=== PATIENT | male | born 1965 | race Caucasian/White ===

== ENCOUNTER → 2016-09-04 | Outpatient (CLI) | payer MEDICARE, MEDICAID ==
[~2016-09-04] MED LIST: ALLP100T PO; ALLP300T PO; ALPR.25T PO; ALPR.5T PO; APIX5TAB PO; ASP81CT PO; CATHETER FLUSH 10 ML SYR IV PRN; DABI75CA3 PO; DIGO125T PO; DILT180C PO; METO-274 PO; OMG1KC PO; PRV20T PO; REGADENOSON 0.4 MG/5 ML SYR (LEXISCAN) IV ONE; VERA180T5 PO; WRF3T PO
--- OUTSIDE RECORDS SUMMARY | 2016-09-04 10:37 | XMS REPORT | Continuity of Care Document ---
Author Author [facility] Organization [facility] Address Unknown Phone Unavailable Care Team Providers Care Director Of Student Financial Aid Name Role Phone Chad Almodovar PCP [phone] Source Comments Some departments are not documenting in the electronic medical record. If you do not see the information that you expected, contact Release of Information in the Health Information Management department at [phone] for further assistance in locating additional records.[facility] Active Allergies and Adverse Reactions Allergen Noted Date Severity Reactions Comments Azithromycin 01/25/2014 UNKNOWN Diltiazem 11/24/2014 Medium HIVES Flagyl 01/25/2014 SEE COMMENTS Made skin burn Flecainide 05/31/2014 HIVES Indomethacin 01/25/2014 EDEMA Pradaxa 04/22/2013 SEE COMMENTS Nose bleeds Current Medications Prescription Sig. Disp. Refills Start End Date Status Date ALPRAZolam (XANAX) 0.5 mg Take 0.5 mg by mouth Active tablet three times daily as needed. allopurinol (ZYLOPRIM) Take 150 mg by mouth Active 300 mg tablet daily. digoxin (LANOXIN) 125 mcg Take 1 Tab by mouth 90 Tab 3 08/12/19 Active tablet daily. 15 enoxaparin (LOVENOX) 80 Inject 0.8 mL into 6 Syringe 1 01/06/20 Active mg syrg area(s) as directed twice 15 daily. Start Lovenox as instructed based on your INR, continue until INR>2.0. apixaban (ELIQUIS) 5 mg Take 5 mg by mouth twice Active tab tablet daily. metoprolol XL (TOPROL XL) Take 100 mg by mouth Active 100 mg tablet daily. 1 tablet AM and 1/2 tablet PM Active Problems Problem Noted Date Dental caries 11/24/2014 Overview: Extraction Planned. May hold warfarin for 5 days. Will need Lovenox bridge due to h/o TIA. Atrial fibrillation (HCC) 06/10/2014 Alcohol abuse 04/29/2013 Last Assessment & Plan: Has a addiction problem. May need help. We will refer to PCP. Tobacco abuse 04/29/2013 Last Assessment & Plan: Quit smoking 2 weeks ago after he had cold. HLD (hyperlipidemia) 04/22/2013 Last Assessment & Plan: Has not been tested lately. Refer to PCP. Chronic anticoagulation 04/22/2013 Overview: On warfarin Managed by Dr. Almodovar's office CVA (cerebral infarction) 04/22/2013 Overview: Reported CVA - no residual effects. Resolved Problems Problem Noted Date Resolved Date shelter (current) use of anticoagulants 05/17/2014 04/18/2015 AF (atrial fibrillation) ([facility]) 04/22/2013 04/18/2015 Overview: 12/06/2010 - ECHO: LVEF ~ 54%. Normal chamber dimensions of the heart. Normal LV systolic function. Mild MR and TR. ([facility]). 12/06/2010 - Cardiac CTA: Minimal identifiable calcifications, low probability of CAD. ([facility]). 05/2012 - D[facility] 11/08/2012 - 48 Hour Holter: Well controlled AF. (Dr. Early) 12/30/2012 - Cardiac Catheterization: Angiographically mild coronary artery disease. Normal LV systolic function and EF=60%. Normal LVEDP. No significant MR. ([facility]). 04/08/2013- 48 Hour Holter: Episodes of AF with RVR. Some episodes of bradycardia were noted while sleeping. (Dr. Early). 06/10/2014 - LAAA: RFA PV isolation for Persistent Atrial fibrillation. The left atrium was mildly enlarged. The PV anatomy was remarkable for an accessory pulm vein below the RSPV. Normal AV node function, no evidence of accessory pathway. CTI ablation with bi-directional isthmus block L ast Assessment & Plan: Still in persistent AFib. Still has alcohol addiction issues. I wont recommend cardioversion until his alcohol issues are resolved. Stop Propafenone. Start diltiazem 120 mg daily. Sleep study was negative. Social History Tobacco Use Types Packs/Day Years Used Date Light Tobacco Smoker Cigars 0.25 Smokeless Tobacco: Chew Current User Alcohol Use Drinks/Week oz/Week Comments Yes 60 Cans of 36.0 beer Last Filed Vital Signs Vital Sign Reading Time Taken Blood Pressure 128/72 11/24/2014 9:54 AM CDT Pulse 90 11/24/2014 9:54 AM CDT Temperature 36.8 C (98.2 F) 06/11/2014 9:45 AM FLAT EXAMINER Respiratory Rate - - Height 1.778 m (5' 10") 11/24/2014 9:54 AM CDT Weight 88.542 kg (195 lb 3.2 oz) 11/24/2014 9:54 AM CDT Body Mass Index 28.01 11/24/2014 9:54 AM CDT Oxygen Saturation 99% 06/11/2014 9:45 AM FLAT EXAMINER Plan of Care Health Maintenance Due Date Last Done Comments Hepatitis C Screening 1965 Physical (Comprehensive) 1971 Exam Pertussis Vaccine 1975 Tetanus Vaccine 1981 Colorectal Cancer 2014 Screening Influenza Vaccine 03/29/2016 Results from Last 3 Months Not on file
[2016-09-04] MEDS: CATHETER FLUSH 10 ML SYR IV PRN ×2 (11:59→13:13)
[2016-09-04 13:12] VITALS: BP 142/101
--- NOTE | 2016-09-06 08:40 | STRESS TEST ---
PROCEDURE PHYSICIAN: JOHN EARLY DATE OF PROCEDURE: 09/04/2016 RESTING AND POST REGADENOSON TECHNETIUM 99M TETROFOSMIN SPECT CT IMAGING: ORDERING PHYSICIAN: Gilda Barraza APRN. PRIMARY PHYSICIAN: Dr. Almodovar. OTHER PHYSICIAN: Dr. Early CLINICAL DIAGNOSIS: 1. Shortness of breath. 2. Atrial fibrillation. 3. Tobacco use. Baseline images were carried out after injection of 10.47 mCi technetium 99m tetrofosmin. This was followed by 0.4 mg of regadenoson and 31 mCi millicuries of technetium 99m tetrofosmin for stress imaging. The electrocardiogram showed atrial fibrillation with incomplete right bundle branch block. The electrocardiogram did not change significantly with the regadenoson infusion. Images at rest and following stress, does not indicate any significant perfusion defects consistent with any significant myocardial ischemia or infarction. Gated images show normal global left ventricular systolic function with normal regional wall motion. Left ventricular ejection fraction is calculated to be 67%. Left ventricular end-diastolic volume is 50 mL. TID is absent (0.96). CONCLUSIONS: 1. No evidence of any significant myocardial ischemia or infarction on this study. 2. Normal regional wall motion. 3. Normal global left ventricular function with a calculated ejection fraction of 67%. Job ID: [id number] Dictated Date: 09/05/2016 13:20:35 Orthodontist Vice President Date: 09/06/2016 08:38:29 / chad
--- NOTE | 2016-09-07 07:08 | ECHOCARDIOGRAPHY REPORT ---
PROCEDURE PHYSICIAN: JOHN MCCORMICK DATE OF PROCEDURE: 09/04/2016 TWO DIMENSIONAL ECHOCARDIOGRAM REPORT PRIMARY PHYSICIAN: Dr. Almodovar OTHER PHYSICIAN: REFERRING PHYSICIAN: ORDERING PHYSICIAN: Gilda Barraza APRN INDICATION FOR THE PROCEDURE: Shortness of breath, atrial fibrillation MEASUREMENTS DERIVED VALUES LV DIAMETER (LAX) NORMALS NORMALS Diastolic 5.3 (3.6-5.2) Eject. Fract. (60%+/-6%) Systolic (2.3-3.9) Diastolic Vol. % Shortening (0.22-0.42) Systolic Vol. Aortic Root 3.3 IVS THICKNESS Diastolic 1.1 (0.6-1.1) LVPW THICKNESS Diastolic 0.9 (0.6-1.1) LA DIAMETER Systolic 4.7 (2.1-3.7) DESCRIPTION: Two-dimensional echocardiography shows well preserved global left ventricular systolic function with left ventricular ejection fraction of approximately 55%. The aortic, mitral and tricuspid valve leaflets show good leaflet excursion. There is no significant pericardial effusion. Doppler imaging shows trivial to mild mitral and tricuspid regurgitation. There is no Doppler evidence of significant valvular stenosis. Pulmonary artery systolic pressure is estimated to be approximately 25 mmHg. Good subcostal views are not available. The study is not adequate for evaluation for intracardiac shunt. Inferior vena cava does not appear to be dilated. CONCLUSION: 1. Normal global left ventricular systolic function and ejection fraction of approximately 55%. 2. Mild enlargement of the left atrium. 3. Mild mitral and tricuspid regurgitation. 4. No evidence of significant valvular stenosis. 5. Pulmonary artery systolic pressure is estimated to be approximately 25 mmHg. Job ID: [id number] Dictated Date: 09/06/2016 11:19:10 Bank Guard Date: 09/07/2016 07:02:34 / teresita
== END ==
LOC: CARD 10:31
PROVIDERS: ATTEND Nurse Practitioner Family
DX: I48.1 Persistent atrial fibrillation (principal); R06.09 Other forms of dyspnea; Z72.0 Tobacco use
CPT/HCPCS: 78452; 93017; 93306

== ENCOUNTER 2018-08-28 05:36 | Outpatient (CLI) | payer MEDICARE, MEDICAID ==
[~2018-08-28] VITALS: Ht 177.8 cm; Wt 89.4 kg
[~2018-08-28 05:36] MED LIST changes: -CATHETER FLUSH 10 ML SYR IV PRN; -METO-274 PO; +METO-395 PO; -REGADENOSON 0.4 MG/5 ML SYR (LEXISCAN) IV ONE
[2018-08-28] MEDS ORDERED: ALPR0.5T7 PO (09:26)
[2018-08-28] MEDS ORDERED: PROP20TA5 PO (09:26)
[2018-08-28] MEDS ORDERED: CLIN300C11 PO (09:26)
[2018-08-28] MEDS ORDERED: ALLO300T2 PO (09:26)
== END 2018-08-28 13:27 | disposition home or self-care (01) ==
LOC: PREOP 05:36
PROVIDERS: ATTEND Otolaryngology Otolaryngology/Facial Plastic Surgery
DX: Z01.818 Encounter for other preprocedural examination (principal)

== ENCOUNTER 2018-10-27 13:30 | Outpatient (CLI) | payer MEDICARE, MEDICAID ==
[~2018-10-27] VITALS: Ht 177.8 cm; Wt 89.4 kg
[~2018-10-27 13:30] MED LIST changes: +ALLO300T2 PO; +ALPR0.5T7 PO; +CLIN300C11 PO; +PROP20TA5 PO
== END 2018-10-27 13:35 | disposition home or self-care (01) ==
LOC: PREOP 13:30
PROVIDERS: ATTEND Otolaryngology Otolaryngology/Facial Plastic Surgery
DX: Z01.818 Encounter for other preprocedural examination (principal)

== ENCOUNTER 2018-10-31 07:44 | Day surgery (SDC) | payer MEDICARE, MEDICAID ==
--- NOTE | 2018-09-19 12:56 | Anesthesia-General Post-Op ---
General Patient Condition Mental Status/LOC: Same as Preop Cardiovascular: Satisfactory Nausea/Vomiting: Absent Respiratory: Satisfactory Pain: Controlled Complications: Absent Post Op Complications Complications None Follow Up Care/Instructions Patient Instructions None needed. Anesthesia/Patient Condition Patient Condition Patient is doing well, no complaints, stable vital signs, no apparent adverse anesthesia problems. No complications reported per nursing. JUAN FRANCISCO HOANG CRNA Sep 19, 2018 12:56
[~2018-10-31] VITALS: Ht 177.8 cm; Wt 96.2 kg
--- OUTSIDE RECORDS SUMMARY | 2018-10-31 07:48 | XMS REPORT ---
Author Author KORY MACIEL [address] Address [address] [place] [id number] Care Team Providers Care Farm Rancher Name Role Phone KORY MACIEL Unavailable PROBLEMS Unknown Problems ALLERGIES Substance Reaction Event Type Date Status Pradaxa Unknown Drug Allergy Mar, Active Uloric Unknown Drug Allergy Mar, Active Lopressor Unknown Drug Allergy Mar, Active Indomethacin Unknown Drug Allergy Mar, Active Flagyl Unknown Drug Allergy Mar, Active Diltiazem Unknown Drug Allergy Mar, Active ENCOUNTERS Encounter Location Date Diagnosis [facility] [address] [address] Mar, Upper respiratory tract infection, unspecified type J06.9 [facility] [address] [place] [address] Mar, Seasonal allergic rhinitis, unspecified trigger J30.2 [facility] [address] [place] [address] Jan, Sinusitis chronic, frontal J32.[address] [address] Aug, Sinusitis chronic, frontal J32.1 and Diarrhea, unspecified type R19.[address] [address] Jun, Right maxillary sinusitis J32.[address] [address] May, Bronchitis J40 [address] [address] Apr, [address] [address] Apr, Dental examination Z01.[address] [address] Mar, Dental infection K04.7 [facility] [place] [address] [place] [address] Apr, ysabelTAYLOR [address] [address] Mar, Left maxillary sinusitis J32.0 and Acute pain of right shoulder M25.511 [facility] [address] [address] Jan, Hordeolum externum of left upper eyelid H00.014 [facility] [address] [address] November, Atrial fibrillation I48.91 and continuous churn buttermaker (current) use of anticoagulants Z79.01 [facility] [address] [address] November, [facility] [address] [address] Oct, Atrial fibrillation I48.91 and Tooth pain K08.8 [facility] [address] [address] May, Acute maxillary sinusitis, recurrence not specified J01.00 [facility] [id number] [place] [address] 14 Oct, 2014 [facility] [id number] [place] [address] Oct, [facility] [address] [place] [address] Sep, [facility] [id number] [place] [address] Sep, [facility] [id number] [place] [address] Sep, [facility] [id number] [place] [address] Sep, [facility] [id number] [place] [address] Sep, [facility] [address] [id number] [place] [address] Sep, [facility] [place] [facility] [address] [id number] [place] [address] Aug, [facility] [place] [facility] [address] [id number] [place] [address] Aug, [facility] [place] [facility] [address] [id number] [place] [address] Jul, [facility] [place] [facility] [address] [id number] [place] [address] Jul, [facility] [place] [facility] [address] [id number] [place] [address] Jun, [facility] [place] [facility] [address] [id number] [place] [address] Jun, [facility] [place] [facility] [address] [id number] [place] [address] May, [facility] [place] [facility] [address] [id number] [place] [address] May, [facility] [place] [facility] [address] [id number] [place] [address] Jan, [facility] [place] [facility] [address] [id number] [place] [address] Jan, [facility] [place] [facility] [address] [id number] [place] [address] Dec, [facility] [place] [facility] [address] [id number] [place] [address] Dec, [facility] [place] [facility] [address] [id number] [place] [address] November, [facility] [place] [facility] [address] [id number] [place] [address] Oct, [facility] [place] [facility] [address] [id number] [address] May, [facility] [address] [facility] [id number] [address] May, [facility] [address] [id number] [address] Mar, [facility] [address] [id number] [address] Feb, [facility] [address] [address] Aug, [facility] [address] [id number] [address] Jul, [facility] [address] [address] Jun, [facility] [address] [id number] [address] Jun, [facility] [address] [id number], [place] [address] November, IMMUNIZATIONS Vaccine Route Administration Date Status DEPO MEDROL 80 MG/ML IM Intramuscular Apr 01, 2018 Administered SOCIAL HISTORY Never Assessed REASON FOR VISIT allergy issues mostly at night. Shirley PLAN OF CARE Activity Details Follow Up prn, 3 Months Reason: VITAL SIGNS Height 70 in 2018-04-01 Weight 205.6 lbs 2018-04-01 Temperature 98.9 degrees Fahrenheit 2018-04-01 Heart Rate 98 bpm 2018-04-01 Respiratory Rate 18 2018-04-01 BMI 29.50 kg/m2 2018-04-01 Blood pressure systolic 118 mmHg 2018-04-01 Blood pressure diastolic 88 mmHg 2018-04-01 MEDICATIONS Medication Instructions Dosage Frequency Start Date End Date Duration Status Eliquis 5 MG Active Xanax 0.5 MG Orally Twice a day 1 tablet 12h Active Propranolol HCl 10 MG Orally Twice a day 1 tablet 12h Active Allopurinol 100 MG Orally Once a day 1 tablet 24h Active RESULTS No Results PROCEDURES Procedure Date Ordered Result Body Site DEPO MEDROL 80 MG/ML Apr 01, 2018 THER/PROPH/DIAG INJ, SC/IM Apr 01, 2018 INSTRUCTIONS MEDICATIONS ADMINISTERED No Known Medications MEDICAL (GENERAL) HISTORY Type Description Date Medical History Atrial fibrillation Medical History Hemorrhoids Medical History Generalized anxiety disorder Medical History Gout Medical History Unspecified sleep apnea Medical History Alcohol abuse Medical History Nondependent alcohol abuse, unspecified drunkenness Surgical History hemorrhoidectomy 2010 Surgical History fistula repair 2010 Surgical History reconstructive surgery; leg Surgical History colonoscopy 2010 Surgical History cardiac ablation 2013 Hospitalization History Atrial Fib, SOA 2010
--- OUTSIDE RECORDS SUMMARY | 2018-10-31 07:48 | XMS REPORT | Clinical Summary ---
Author Author [facility] Organization [facility] Address Unknown Phone Unavailable Care Team Providers Care Border Measurer And Cutter Name Role Phone Houston Almodovar MD PCP Unavailable Dede Ann RN Unavailable Unavailable Iris Yu RN Unavailable Unavailable Source Comments Some departments are not documenting in the electronic medical record. If you do not see the information that you expected, contact Release of Information in the Health Information Management department at [phone] for further assistance in locating additional records.[facility] Allergies Comments Active Allergy Reactions Severity Noted Date Azithromycin UNKNOWN 01/25/2014 Diltiazem HIVES Medium 11/24/2014 Made skin burn Metronidazole SEE COMMENTS 01/25/2014 Flecainide HIVES 05/31/2014 Indomethacin EDEMA 01/25/2014 Nose bleeds Dabigatran Etexilate SEE COMMENTS 04/22/2013 Medications End Date Status Medication Sig Dispensed Refills Start Date Active ALPRAZolam (XANAX) 0.5 mg Take 0.5 mg 0 tablet by mouth three times daily as needed. Active allopurinol (ZYLOPRIM) Take 150 mg 0 300 mg tablet by mouth daily. Active digoxin (LANOXIN) 125 mcg Take 1 Tab by 90 Tab 3 tablet mouth daily. 5 Active enoxaparin (LOVENOX) 80 Inject 0.8 mL 6 Syringe 1 mg syrg into area(s) 5 as directed twice daily. Start Lovenox as instructed based on your INR, continue until INR>2.0. Active apixaban (ELIQUIS) 5 mg Take 5 mg by 0 tab tablet mouth twice daily. Active metoprolol XL (TOPROL XL) Take 100 mg 0 100 mg tablet by mouth daily. 1 tablet AM and 1/2 tablet PM Active Problems Problem Noted Date Dental caries 11/24/2014 Overview: Extraction Planned. May hold warfarin for 5 days. Will need Lovenox bridge due to h/o TIA. Atrial fibrillation 06/10/2014 Alcohol abuse 04/29/2013 Last Assessment & [...] Resolved Problems Problem Noted Date Resolved Date [facility] (current) use of anticoagulants 05/17/2014 04/18/2015 AF (atrial fibrillation) 04/22/2013 04/18/2015 Overview: 12/06/2010 - ECHO: LVEF ~ 54%. Normal chamber dimensions of the heart. Normal LV systolic function. Mild MR and TR. ([facility]). 12/06/2010 - Cardiac CTA: Minimal identifiable calcifications, low probability of CAD. ([facility]). 05/2012 - DCCV: unsuccessful [facility]version [facility] 11/08/2012 - 48 Hour Holter: Well controlled AF. (Dr. Early) 12/30/2012 - Cardiac Catheterization: Angiographically mild coronary artery disease. Normal LV systolic function and EF=60%. Normal LVEDP. No significant MR. ([facility]). 04/08/2013- 48 Hour Holter: Episodes of [...] 120 mg daily. Sleep study was negative. Family History Medical History Relation Name Comments Coronary Artery Disease Father Heart Attack Father Relation Name Status Comments Father Mother Alive Social History Date Tobacco Use Types Packs/Day Years Used Light Tobacco Smoker Cigars 0.25 Smokeless Tobacco: Chew Current User Alcohol Use Drinks/Week oz/Week Comments Yes 60 Cans of 36.0 beer Sex Assigned at Date Recorded Not on file Industry Job Start Date Occupation Not on file Not on file Not on file Travel End Travel History Travel Start No recent travel history available. Last Filed Vital Signs Time Taken Vital Sign Reading 11/24/2014 9:54 AM CDT Blood Pressure 128/72 11/24/2014 9:54 AM CDT Pulse 90 06/11/2014 9:45 AM LOG LOADER Temperature 36.8 C (98.2 F) - Respiratory Rate - 06/11/2014 9:45 AM LOG LOADER Oxygen Saturation 99% - Inhaled Oxygen - Concentration 11/24/2014 9:54 AM CDT Weight 88.5 kg (195 lb 3.2 oz) 11/24/2014 9:54 AM CDT Height 177.8 cm (5' 10") 11/24/2014 9:54 AM CDT Body Mass Index 28.01 Plan of Treatment Health Maintenance Due Date Last Done Comments HEPATITIS C SCREENING 1964 PHYSICAL (COMPREHENSIVE) 1971 EXAM HIV SCREENING 1979 DTAP/TDAP VACCINES (1 - 1982 Tdap) COLORECTAL CANCER 2014 SCREENING SHINGLES RECOMBINANT 2014 VACCINE (1 of 2) INFLUENZA VACCINE 02/26/2018 Results Not on filefrom Last 3 Months Insurance Type Payer Benefit Subscriber ID Effective Phone Address Plan / Dates Group Medicaid [place] [employer] xxxxxxxxxxx 2014- STATE Present HEALTH Advance Directives Patient has advance care planning documents, and code status on file. For more information, please contact: [facility] [address] [place] [address] Date Inactivated Comments Code Status Date Activated 06/11/2014 12:01 PM Full Code 06/10/2014 8:17 AM Provider has discussed Code Status No, more discussion w/Patient or Family? needed
--- OUTSIDE RECORDS SUMMARY | 2018-10-31 07:48 | XMS REPORT ---
Author Author STEPHANI DAY Organization [facility] Address [address] [place] [address] Care Team Providers Care Customer Service Analyst Name Role Phone SHAYSTEPHANI Unavailable PROBLEMS Type Condition ICD9-CM Code [id number] Code Onset Dates Condition Status SNOMED Code Problem Sinusitis chronic, frontal J32.1 Active 15351301 ALLERGIES Substance Reaction Event Type Date Status Pradaxa Unknown Drug Allergy Jun, Active Uloric Unknown Drug Allergy Jun, Active Lopressor Unknown Drug Allergy Jun, Active Indomethacin Unknown Drug Allergy Jun, Active Flagyl Unknown Drug Allergy Jun, Active Diltiazem Unknown Drug Allergy Jun, Active ENCOUNTERS Encounter Location Date Diagnosis [facility] [address] [place] [address] [place] [address] Jun, Sinusitis chronic, frontal J32.1 [facility] [address] [place] [address] May, Acute non -recurrent maxillary sinusitis J01.00 [facility] [address] [place] [address] 06 May, 2018 Acute non -recurrent frontal sinusitis J01.10 and Encounter for immunization Z23 [facility] [address] [place] [address] 14 Mar, 2018 Upper respiratory tract infection, unspecified type J06.9 [facility] [address] [place] [address] 04 Mar, 2018 Seasonal allergic rhinitis, unspecified trigger J30.2 [facility] [address] [place] [address] Jan, Sinusitis chronic, frontal J32.[address] [facility] [address] [address] Aug, Sinusitis chronic, frontal J32.1 and Diarrhea, unspecified type R19.7 [facility] [place] [address] [place] [address] Jun, Right maxillary sinusitis J32.0 [facility] [address] [place] [address] May, Bronchitis J40 [facility] [address] [place] [address] Apr, [facility] [address] [place] [address] Apr, Dental examination Z01.20 [facility] [address] [place] [address] Mar, Dental infection K04.7 [facility] [place] [address] [place] [address] Apr, [facility] [address] [address] Mar, Left maxillary sinusitis J32.0 and Acute pain of right shoulder M25.511 [facility] [place] [address] [place] [address] Jan, Hordeolum externum of left upper eyelid H00.[address] [address] [address] November, Atrial fibrillation I48.91 and shelter (current) use of anticoagulants Z79.01 [facility] [place] [address] [place] [address] November, [facility] [address] [place] [address] Oct, Atrial fibrillation I48.91 and Tooth pain K08.8 [facility] [address] [place] [address] May, Acute maxillary sinusitis, recurrence not specified J01.00 [facility] [address] [place] [id number] [address] Oct, [facility] [address] [place] [id number] [address] Oct, [facility] [address] [place] [address] [place] [address] 24 Sep, 2014 [facility] [address] [id number] [place] [address] 24 Sep, 2014 [facility] [place] [facility] [address] [facility] [id number] [place] [address] 17 Sep, 2014 [facility] [address] [facility] [id number] [place] [address] 17 Sep, 2014 [facility] [place] [facility] [address] [facility] [id number] [place] [address] 10 Sep, 2014 [facility] [place] [facility] [address] [facility] [id number] [place] [address] 10 Sep, 2014 [facility] [place] [facility] [address] [facility] [id number] [place] [address] 14 Aug, 2014 [facility] [place] [facility] [address] [facility] [id number] [place] [address] 14 Aug, 2014 [facility] [place] [facility] [address] [facility] [id number] [place] [address] Jul, [facility] [place] [facility] [address] [facility] [id number] [place] [address] Jul, [facility] [place] [facility] [address] [facility] [id number] [place] [address] Jun, [facility] [place] [facility] [address] [facility] [id number] [place] [address] Jun, [facility] [place] [facility] [address] [facility] [id number], [place] [address] May, [facility] [place] [facility] [address] [facility] [id number] [place] [address] May, [facility] [place] [facility] [address] [facility] [id number] [place] [address] Jan, [facility] [place] [facility] [address] [facility] [id number], [place] [address] Jan, [facility] [address] [id number] [address] Dec, [facility] [address], [place] [address] Dec, [facility] [address], [place] [address] November, [facility] [address], [place] [address] Oct, [facility] [address], [place] [address] May, [facility] [id number] [place] [address] May, [facility] [address], [place] [address] Mar, [facility] [address], [place] [address] Feb, [facility] [address] [id number], [place] [address] Aug, [facility] [address], [place] [address] Jul, [facility] [address] [id number], [place] [address] Jun, [facility] [address] [id number], [place] [address] Jun, [facility] [address] [id number], [place] [address] November, IMMUNIZATIONS No Known Immunizations SOCIAL HISTORY Never Assessed REASON FOR VISIT cough/congestion- nasal sinuses are full, has been on antibiotics and steroids Dmitry Poole PLAN OF CARE Activity Details Follow Up if not improving or with pcp for regular fu Reason: Pending Test CT Scan : Sinus w/o Contrast VITAL SIGNS Height 70 in 2018-06-30 Weight 207.5 lbs 2018-06-30 Temperature 98.2 degrees Fahrenheit 2018-06-30 Heart Rate 82 bpm 2018-06-30 Respiratory Rate 18 2018-06-30 Oximetry 97 % 2018-06-30 BMI 29.77 kg/m2 2018-06-30 Blood pressure systolic 142 mmHg 2018-06-30 Blood pressure diastolic 98 mmHg 2018-06-30 MEDICATIONS Medication Instructions Dosage Frequency Start Date End Date Duration Status Eliquis 5 MG Active PredniSONE 10 mg Orally Once a day 3 tablet 24h May, 5 days Not-Taking Propranolol HCl 10 MG Orally Twice a day 1 tablet 12h Active Allopurinol 100 MG Orally Once a day 1 tablet 24h Active Xanax 0.5 MG Orally Twice a day 1 tablet 12h Active Fluticasone Propionate 50 MCG/ACT Nasally Once a day 1 spray in each nostril 24h May, 30 day(s) Active RESULTS No Results PROCEDURES No Known procedures INSTRUCTIONS MEDICATIONS ADMINISTERED No Known Medications MEDICAL (GENERAL) HISTORY Type Description Date Medical History Atrial fibrillation Medical History Hemorrhoids Medical History Generalized anxiety disorder Medical History Gout Medical History Unspecified sleep apnea Medical History Alcohol abuse Medical History Nondependent alcohol abuse, unspecified drunkenness Medical History Unspecified sleep apnea Surgical History hemorrhoidectomy 2010 Surgical History fistula repair 2010 Surgical History reconstructive surgery; leg Surgical History colonoscopy 2010 Surgical History cardiac ablation 2013 Hospitalization History Atrial Fib, SOA 2010
--- OUTSIDE RECORDS SUMMARY | 2018-10-31 07:48 | XMS REPORT ---
Author Author VINAY MOREL Organization [facility] Address [address] [place] [address] Care Team Providers Care Dramatic Teacher Name Role Phone VINAY MOREL Unavailable PROBLEMS Unknown Problems ALLERGIES Substance Reaction Event Type Date Status Pradaxa Unknown Drug Allergy Jan, Active Uloric Unknown Drug Allergy Jan, Active Lopressor Unknown Drug Allergy Jan, Active Indomethacin Unknown Drug Allergy Jan, Active Flagyl Unknown Drug Allergy Jan, Active Diltiazem Unknown Drug Allergy Jan, Active ENCOUNTERS Encounter Location Date Diagnosis [facility] [address] [address] 14 Mar, 2018 Upper respiratory tract infection, unspecified type J06.9 [facility] [address] [place] [address] 04 Mar, 2018 Seasonal allergic rhinitis, unspecified trigger J30.2 [facility] [address] [place] [address] Jan, Sinusitis chronic, frontal J32.[address] [address] Aug, Sinusitis chronic, frontal J32.1 and Diarrhea, unspecified type R19.[address] [address] Jun, Right maxillary sinusitis J32.[address] [address] May, Bronchitis J40 [address] [address] Apr, [address] [address] Apr, Dental examination Z01.[address] [address] Mar, Dental infection K04.7 [facility] [address] [place] [address] Apr, [facility] [address] [address] Mar, Left maxillary sinusitis J32.0 and Acute pain of right shoulder M25.511 [facility] [address] [address] Jan, Hordeolum externum of left upper eyelid H00.014 [facility] [address] [address] November, 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 [facility] [address] [address] November, [facility] [address] [address] Oct, Atrial fibrillation I48.91 and Tooth pain K08.8 [facility] [address] [address] May, Acute maxillary sinusitis, recurrence not specified J01.00 [facility] [id number] [place] [address] Oct, [facility] [id number] [place] [address] Oct, [address] [address] Sep, [facility] [id number] [place] [address] Sep, [facility] [id number] [place] [address] Sep, [facility] [id number] [place] [address] Sep, [facility] [id number] [place] [address] Sep, [facility] [address] [id number] [place] [address] Sep, [facility] [place] [facility] [address] [id number] [place] [address] Aug, [facility] [place] [facility] [address] [id number] [place] [address] Aug, [facility] [place] [facility] [address] [id number] [place] [address]- [address] Jul, [facility] [place] [facility] [address] [id number] [place] [address] Jul, [facility] [place] [facility] [address] [id number] [place] [address]- [address] Jun, [facility] [place] [facility] [address] [id number] [place] [address]- [address] Jun, [facility] [place] [facility] [address] [id number] [place] [address] May, [facility] [place] [facility] [address] [id number] [place] [address] May, [facility] [place] [facility] [address] [id number] [place] [address] Jan, [facility] [place] [facility] [address] [id number] [place] [address]- [address] Jan, [facility] [place] [facility] [address] [id number] [place] [address]- [address] Dec, [facility] [place] [facility] [address] [id number] [place] [address]- [address] Dec, [facility] [place] [facility] [address] [id number] [place] [address] November, [facility] [place] [facility] [address] [id number] [place] [address]- 15[address] Oct, [facility] [place] [facility] [address] [id number] [place] [address] May, [facility] [address] [id number] [address] May, [facility] [address] [address] Mar, [facility] [address] [id number] [address] Feb, [facility] [address] [address] Aug, [facility] [address] [address]- [address] Jul, [facility] [address] [address]- [address] Jun, [facility] [address] [address]- [address] Jun, [facility] [address] [address] November, IMMUNIZATIONS No Known Immunizations SOCIAL HISTORY Never Assessed REASON FOR VISIT Sinus Infection- pain to sinus area and top teeth and ear, green, yellow drainage Dmitry Poole RN, this is the 4th infection he has had since last May PLAN OF CARE Activity Details Follow Up prn Reason: VITAL SIGNS Height 70 in 2018-02-21 Weight 204.1 lbs 2018-02-21 Temperature 97.9 degrees Fahrenheit 2018-02-21 Heart Rate 104 bpm 2018-02-21 Respiratory Rate 18 2018-02-21 BMI 29.28 kg/m2 2018-02-21 Blood pressure systolic 138 mmHg 2018-02-21 Blood pressure diastolic 88 mmHg 2018-02-21 MEDICATIONS Medication Instructions Dosage Frequency Start Date End Date Duration Status Allopurinol 100 MG Orally Once a day 1 tablet 24h Active Cephalexin 500 mg Orally Twice a day 1 capsule 12h 6 Feb, 2018 10 days Active Xanax 0.5 MG Orally Twice a day 1 tablet 12h Active Eliquis 5 MG Active Propranolol HCl 10 MG Orally Twice a day 1 tablet 12h Active RESULTS No Results PROCEDURES No Known [...]
--- OUTSIDE RECORDS SUMMARY | 2018-10-31 07:48 | XMS REPORT ---
Author Author VINAY MOREL Organization [facility] Address [address] [place] [address] Care Team Providers Care Piano Tuner Name Role Phone MORELVINAY Unavailable PROBLEMS Unknown Problems ALLERGIES Substance Reaction Event Type Date Status Pradaxa Unknown Drug Allergy May, Active Uloric Unknown Drug Allergy May, Active Lopressor Unknown Drug Allergy May, Active Indomethacin Unknown Drug Allergy May, Active Flagyl Unknown Drug Allergy May, Active Diltiazem Unknown Drug Allergy May, Active ENCOUNTERS Encounter Location Date Diagnosis [facility] [address] [address] May, Acute non -recurrent maxillary sinusitis J01.00 [facility] [address] [place] [address] May, Acute non -recurrent frontal sinusitis J01.10 and Encounter for immunization Z23 [facility] [address] [place] [address] 14 Mar, 2018 Upper respiratory tract infection, unspecified type J06.9 [facility] [address] [place] [address] 04 Mar, 2018 Seasonal allergic rhinitis, unspecified trigger J30.[address] [address] Jan, Sinusitis chronic, frontal J32.[address] [facility] [address] [address] Aug, Sinusitis chronic, frontal J32.1 and Diarrhea, unspecified type R19.[address] [facility] [address] [address] Jun, Right maxillary sinusitis J32.[address] [facility] [address] [address] May, Bronchitis J40 zDennis [facility] [address] [place] [address] Apr, [facility] [address] [place] [address] Apr, Dental examination Z01.20 Andrez [facility] [address] [place] [address] Mar, Dental infection K04.7 Dennis [facility] [address] [place] [address] Apr, [facility] [address] [place] [address] Mar, Left maxillary sinusitis J32.0 and Acute pain of right shoulder M25.511 Dennis [facility] [address] [place] [address] Jan, Hordeolum externum of left upper eyelid H00.014 [facility] [address] [place] [address] November, Atrial fibrillation I48.91 and assisted (current) use of anticoagulants Z79.01 Dennis [facility] [address] [place] [address] November, [facility] [place] [address] [place] [address] Oct, Atrial fibrillation I48.91 and Tooth pain K08.[address] [address] May, Acute maxillary sinusitis, recurrence not specified J01.00 [facility] [address], [place] [address] Oct, [facility] [address], [place] [address] Oct, [facility] [address] [place] [address] Sep, [facility] [address], [place] [address] Sep, [facility] [address] [place] [id number] [place] [address] 17 Sep, 2014 [facility] [place] [facility] [address] [id number] [place] [address]- [address] 17 Sep, 2014 [facility] [place] [facility] [address] [id number] [place] [address]- [address] 10 Sep, 2014 [facility] [place] [facility] [address] [id number] [place] [address]- [address] 10 Sep, 2014 [facility] [place] [facility] [address] [id number] [place] [address]- [address] 14 Aug, 2014 [facility] [place] [facility] [address] [id number] [place] [address]- [address] Aug, [facility] [place] [facility] [address] [id number] [place] [address]- [address] Jul, [facility] [place] [facility] [address] [id number] [place] [address]- [address] Jul, [facility] [place] [facility] [address] [id number] [place] [address]- 2046 Jun, [facility] [place] [facility] [address] [id number] [place] [address]- [address] Jun, [facility] [place] [facility] [address] [facility] [id number] [place] [address]- [address] May, [facility] [place] [facility] [address] [id number] [place] [address]- [address] May, [facility] [place] [facility] [address] [id number] [place] [address]- [address] Jan, [facility] [place] [facility] [address] [id number] [place] [address]- 359[address] Jan, [facility] [place] [facility] [address] [id number] [place] [address]- [address] Dec, [facility] [place] [facility] [address] [id number] [place] [address]- 8[address] Dec, [facility] [place] [facility] [address] [id number], [place] [address]- [address] November, [facility] [address], [place] [address] Oct, [facility] [address], [place] [address]- [address] May, [facility] [address], [place] [address]- [address] May, [facility] [address], [place] [address] Mar, [facility] [id number] [place] [address] Feb, [facility] [address], [place] [address] Aug, [facility] [address] [id number], [place] [address]- [address] Jul, [facility] [address], [place] [address]- [address] Jun, [facility] [address], [place] [address]- [address] Jun, [facility] [address] [id number], [place] [address]- [address] November, IMMUNIZATIONS No Known Immunizations SOCIAL HISTORY Never Assessed REASON FOR VISIT conjestion, cough for 2 weeks. Shirley PLAN OF CARE Activity Details Follow Up prn Reason: VITAL SIGNS Height 70 in 2018-06-03 Weight 206.7 lbs 2018-06-03 Temperature 98.6 degrees Fahrenheit 2018-06-03 Heart Rate 96 bpm 2018-06-03 Respiratory Rate 18 2018-06-03 Oximetry 96 % 2018-06-03 BMI 29.66 kg/m2 2018-06-03 Blood pressure systolic 132 mmHg 2018-06-03 Blood pressure diastolic 92 mmHg 2018-06-03 MEDICATIONS Medication Instructions Dosage Frequency Start Date End Date Duration Status Eliquis 5 MG Active Propranolol HCl 10 MG Orally Twice a day 1 tablet 12h Active Cephalexin 500 MG Orally Twice a day 1 capsule 12h May, 7 days Active Xanax 0.5 MG Orally Twice a day 1 tablet 12h Active Allopurinol 100 MG Orally Once a day 1 tablet 24h Active Fluticasone Propionate 50 MCG/ACT Nasally Once [...]
--- OUTSIDE RECORDS SUMMARY | 2018-10-31 07:48 | XMS REPORT ---
Author Author STEPHANI DAY [facility] Address [address] [place] [address] Care Team Providers Care Texture Artist Name Role Phone STEPHANI DAY Unavailable PROBLEMS Unknown Problems ALLERGIES Substance Reaction Event Type Date Status Pradaxa Unknown Drug Allergy May, Active Uloric Unknown Drug Allergy May, Active Lopressor Unknown Drug Allergy May, Active Indomethacin Unknown Drug Allergy May, Active Flagyl Unknown Drug Allergy May, Active Diltiazem Unknown Drug Allergy May, Active ENCOUNTERS Encounter Location Date Diagnosis [facility] [address] [address] May, Acute non -recurrent maxillary sinusitis J01.00 [facility] [address] [place] [address] May, Acute non -recurrent frontal sinusitis J01.10 and Encounter for immunization Z23 [facility] [address] [place] [address] 14 Mar, 2018 Upper respiratory tract infection, unspecified type J06.9 [facility] [address] [place] [address] 04 Mar, 2018 Seasonal allergic rhinitis, unspecified trigger J30.[address] [address] Jan, Sinusitis chronic, frontal J32.[address] [facility] [address] [address] Aug, Sinusitis chronic, frontal J32.1 and Diarrhea, unspecified type R19.[address] [facility] [address] [address] Jun, Right maxillary sinusitis J32.[address] [facility] [address] [address] May, Bronchitis J40 zDennis BELLOA [address] [place] [address] Apr, [facility] [address] [place] [address] Apr, Dental examination Z01.20 Andrez BELLOA [address] [place] [address] Mar, Dental infection K04.7 Dennis PELZER [address] [place] [address] Apr, 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 Dennis PELZER [address] [place] [address] November, [facility] [address] [place] [address] Oct, Atrial fibrillation I48.91 and Tooth pain K08.[address] [address] May, Acute maxillary sinusitis, recurrence not specified J01.00 [facility] [address] [address] Oct, [facility] [address] [address] Oct, [facility] [address] [place] [address] Sep, [facility] [address] [address] Sep, [facility] [address] [place] [id number] [place] [address] 17 Sep, 2014 [facility] [place] [facility] [address] [id number] [place] [address] 17 Sep, 2014 [facility] [place] [facility] [address] [id number] [place] [address] 10 Sep, 2014 [facility] [place] [facility] [address] [id number] [place] [address] 10 Sep, 2014 [facility] [place] [facility] [address] [id number] [place] [address] 14 Aug, 2014 [facility] [place] [facility] [address] [id number] [place] [address] Aug, [facility] [place] [facility] [address] [id number] [place] [address] Jul, [facility] [place] [facility] [address] [id number] [place] [address] Jul, [facility] [place] [facility] [address] [id number] [place] [address] Jun, [facility] [place] [facility] [address] [id number] [place] [address] Jun, [facility] [place] [facility] [address] [facility] [id number] [place] [address] May, [facility] [place] [facility] [address] [id number] [place] [address] May, [facility] [place] [facility] [address] [id number] [place] [address] Jan, [facility] [place] [facility] [address] [id number] [place] [address] Jan, [facility] [place] [facility] [address] [id number] [place] [address] Dec, [facility] [place] [facility] [address] [id number] [place] [address] Dec, [facility] [place] [facility] [address], [place] [address] November, [facility] [address], [place] [address] Oct, [facility] [address], [place] [address] May, [facility] [address] [address] May, [facility] [address], [place] [address] Mar, [facility] [address] [place] [address] Feb, [facility] [address] [address] Aug, [facility] [id number] [address] Jul, [facility] [address], [place] [address] Jun, [facility] [address] [address] Jun, [facility] [id number] [address] November, IMMUNIZATIONS No Known Immunizations SOCIAL HISTORY Never Assessed REASON FOR VISIT congestion, said he has had it for the past couple months now, he has been on two different antibotics that have not helped, he said at night the congestion is worse, unable to breath at night through nose, JBishop PLAN OF CARE Activity Details Follow Up 2 Weeks, prn Reason: VITAL SIGNS Height 70 in 2018-06-20 Weight 202.3 lbs 2018-06-20 Temperature 98.0 degrees Fahrenheit 2018-06-20 Heart Rate 94 bpm 2018-06-20 Respiratory Rate 18 2018-06-20 BMI 29.02 kg/m2 2018-06-20 Blood pressure systolic 147 mmHg 2018-06-20 Blood pressure diastolic 86 mmHg 2018-06-20 MEDICATIONS Medication Instructions Dosage Frequency Start Date End Date Duration Status Eliquis 5 MG Active Propranolol HCl 10 MG Orally Twice a day 1 tablet 12h Active PredniSONE 10 mg Orally Once a day 3 tablet 24h May, 5 days Active Allopurinol 100 MG Orally Once a [...]
--- OUTSIDE RECORDS SUMMARY | 2018-10-31 07:49 | XMS REPORT ---
Author Author KORY MACIEL Organization [facility] [place] Address [address] [place] [address] Care Team Providers Care Industrial Paramedic Name Role Phone KORY MACIEL Unavailable PROBLEMS Type Condition ICD9-CM Code SQU09-NS Code Onset Dates Condition Status SNOMED Code Problem Sinusitis chronic, frontal J32.1 Active 11820944 Problem Nondependent alcohol abuse, unspecified drunkenness 305.00 Active 223908959 Problem Falling from unspecified high place, undetermined whether accidentally or purposely inflicted E987.9 Active Problem Unspecified sleep apnea 780.57 Active 38248868 Problem Palpitations 785.1 Active 74709926 ALLERGIES No Information ENCOUNTERS Encounter Location Date Diagnosis [facility] [place] [address] [id number] [place] [id number] Aug, Sinusitis chronic, frontal J32.1 and Diarrhea, unspecified type R19.7 [facility] [place] [address] [id number] [place] [address] Jun, Right maxillary sinusitis J32.0 [facility] [place] [address] [id number] [place] [id number] May, Bronchitis J40 [facility] [place] [address] [id number] [place] [id number] Apr, [facility] [place] [address] [id number] [facility] [place] [id number] Apr, Dental examination Z01.20 [facility] [place] [address] [id number] [place] [id number] Mar, Dental infection K04.7 [facility] [place] [address] [id number] [facility] [id number] Apr, [facility] [place] [address] [id number] [place] [address] Mar, Left maxillary sinusitis J32.0 and Acute pain of right shoulder M25.511 [facility] [place] [address] [id number] [place] [address] Jan, Hordeolum externum of left upper eyelid H00.014 [facility] [place] [address] [id number] [place] [address] November, Atrial fibrillation I48.91 and joint terminal attack controller (current) use of anticoagulants Z79.01 [facility] [place] [address] [id number] [place] [address] November, [facility] [place] [address] [id number] [place] [address] Oct, Atrial fibrillation I48.91 and Tooth pain K08.8 [facility] [place] [address] [id number] [place] [address] May, Acute maxillary sinusitis, recurrence not specified J01.00 [facility] [address] [address] Oct, [facility] [address] [address] Oct, [facility] [place] [address] [facility] [address] [id number] [place] [id number] Sep, [facility] [address] [address] 24 Sep, 2014 [facility] [address] [address] Sep, [facility] [address] [id number] [address] Sep, [facility] [id number] Sep, [facility] [address] [address] Sep, [facility] [id number] [address] Aug, [facility] [place] [facility] [address] [id number] [place] [address] Aug, [facility] [place] [facility] [address] [id number] [place] [address]- [address] Jul, [facility] [place] [facility] [address] [id number] [place] [address]- [address] Jul, [facility] [place] [facility] [address] [id number] [place] [address] Jun, [facility] [place] [facility] [address] [id number] [place] [address]- [address] Jun, [facility] [place] [facility] [address] [id number] [place] [address]- 295[address] May, [facility] [place] [facility] [address] [id number] [place] [address]- [address] May, [facility] [place] [facility] [address] [id number] [place] [address]- 90[address] Jan, [facility] [place] [facility] [address] [id number] [place] [address]- [address] Jan, [facility] [place] [facility] [address] [id number] [place] [address]- [address] Dec, [facility] [place] [facility] [address] [id number] [place] [address]- [address] Dec, [facility] [place] [facility] [address] [id number] [place] [address]- [address] November, [facility] [place] [facility] [address] [id number] [place] [address]- [address] Oct, [facility] [place] [facility] [address] [id number] [place] [address]- [address] May, [facility] [place] [facility] [address] [id number] [place] [address]- 36[address] May, [facility] [place] [facility] [address] [id number] [address] Mar, [facility] [address] [id number] [address] Feb, [facility] [address] [address] Aug, [facility] [address] [id number] [address] Jul, [facility] [address] [address] Jun, [facility] [address] [address] Jun, [facility] [address] [address] November, IMMUNIZATIONS No Known Immunizations SOCIAL HISTORY Never Assessed REASON FOR VISIT cough...................lwileyrn PLAN OF CARE Activity Details Follow Up prn Reason: VITAL SIGNS Height 70 in 2017-06-24 Weight 199 lbs 2017-06-24 Temperature 98.7 degrees Fahrenheit 2017-06-24 Heart Rate 72 bpm 2017-06-24 Respiratory Rate 18 2017-06-24 BMI 28.55 kg/m2 2017-06-24 Blood pressure systolic 126 mmHg 2017-06-24 Blood pressure diastolic 78 mmHg 2017-06-24 MEDICATIONS Medication Instructions Dosage Frequency Start Date End Date Duration Status Azithromycin 250 MG Orally Once a day 2 tablets on the first day, then 1 tablet daily for 4 days 24h 5 day(s) Active RESULTS No Results PROCEDURES No Known procedures INSTRUCTIONS MEDICATIONS ADMINISTERED No Known Medications MEDICAL (GENERAL) HISTORY Type Description Date Medical History Atrial fibrillation Medical History Hemorrhoids Medical History Generalized anxiety disorder Medical History Gout Medical History Unspecified sleep apnea Medical History Alcohol abuse Surgical History hemorrhoidectomy 2010 Surgical History fistula repair 2010 Surgical History reconstructive surgery; leg Surgical History colonoscopy 2010 Surgical History cardiac ablation 2013 Hospitalization History Atrial Fib, SOA 2010
--- OUTSIDE RECORDS SUMMARY | 2018-10-31 07:49 | XMS REPORT ---
Author Author KORY MACIEL [facility] [place] Address [address] [place] [address] Care Team Providers Care Cost Recorder Name Role Phone KORY MACIEL Unavailable PROBLEMS Type Condition ICD9-CM Code WDG11-EX Code Onset Dates Condition Status SNOMED Code Problem Sinusitis chronic, frontal J32.1 Active 90708796 Problem Nondependent alcohol abuse, unspecified drunkenness 305.00 Active 663337653 Problem Falling from unspecified high place, undetermined whether accidentally or purposely inflicted E987.9 Active Problem Unspecified sleep apnea 780.57 Active 12863208 Problem Palpitations 785.1 Active 64738478 ALLERGIES Substance Reaction Event Type Date Status Pradaxa Unknown Drug Allergy Jun, Active Uloric Unknown Drug Allergy Jun, Active Lopressor Unknown Drug Allergy Jun, Active Indomethacin Unknown Drug Allergy Jun, Active Flagyl Unknown Drug Allergy Jun, Active Diltiazem Unknown Drug Allergy Jun, Active ENCOUNTERS Encounter Location Date Diagnosis [facility] [address] [id number] [place] [id number] Aug, Sinusitis chronic, frontal J32.1 and Diarrhea, unspecified type R19.7 [facility] [place] [address] [facility] [address] [id number] [place] [id number] Jun, Right maxillary sinusitis J32.0 [facility] [place] [address] [place] [address] [address] [id number] [place] [address] May, Bronchitis J40 [facility] [place] [address] [facility] [address] [id number] [place] [id number] Apr, [facility] [place] [address] [facility] [address] [id number] [place] [address] Apr, Dental examination Z01.20 [facility] [place] [address] [facility] [address] [id number] [place] [id number] Mar, Dental infection K04.7 [facility] [place] [address] [facility] [address] [id number] [place] [id number] Apr, [facility] [place] [address] [facility] [address] [id number] [place] [address] Mar, Left maxillary sinusitis J32.0 and Acute pain of right shoulder M25.511 [facility] [place] [address] [facility] [address] [id number] [place] [id number] Jan, Hordeolum externum of left upper eyelid H00.014 [facility] [place] [address] [facility] [address] [id number] [place] [address] November, Atrial fibrillation I48.91 and correction (current) use of anticoagulants Z79.01 [facility] [place] [address] [facility] [address] [id number] [place] [id number] November, [facility] [place] [address] [facility] [address] [id number] [place] [address] Oct, Atrial fibrillation I48.91 and Tooth pain K08.8 [facility] [place] [address] [facility] [address] [id number] [place] [id number] May, Acute maxillary sinusitis, recurrence not specified J01.00 [facility] [address], [place] [address] Oct, [facility] [id number] [place] [address] Oct, [facility] [place] [address] [facility] [address] [id number] [place] [id number] Sep, [facility] [id number] [place] [address] Sep, [facility] [id number] [place] [address]- [address] Sep, [facility] [id number] [place] [address]- [address] Sep, [facility] [id number] [place] [address]- [address] Sep, [facility] [place] [facility] [address] [id number] [place] [address]- 94[address] Sep, [facility] [place] [facility] [address] [id number] [place] [address]- [address] Aug, [facility] [place] [facility] [address] [id number] [place] [address]- 0627 Aug, [facility] [place] [facility] [address] [id number] [place] [address]- 5029 Jul, [facility] [place] [facility] [address] [id number] [place] [address]- 8241 Jul, [facility] [place] [facility] [address] [id number] [place] [address]- 9585 Jun, [facility] [place] [facility] [address] [id number] [place] [address]- 7939 Jun, [facility] [place] [facility] [address] [id number] [place] [address]- 1088 May, [facility] [place] [facility] [address] [id number] [place] [address]- 9685 May, [facility] [place] [facility] [address] [id number] [place] [address]- 9564 Jan, [facility] [place] [facility] [address] [id number] [place] [address]- 2388 Jan, [facility] [place] [facility] [address] [id number] [place] [address]- 0723 Dec, [facility] [place] [facility] [address] [id number] [place] [address]- 6414 Dec, [facility] [place] [facility] [address] [id number] [place] [address]- 7291 November, [facility] [place] [facility] [address] [id number] [place] [address]- 0186 Oct, [facility] [place] [facility] [id number], [place] [address] 2546 May, [facility] [address], [place] [address] May, [facility] [address], [place] [address] 2546 Mar, [facility] [address], [place] [address] Feb, [facility] [address] [id number], [place] [address] 2546 Aug, [facility] [id number] [place] [address]- [address] Jul, [facility] [address] [place] [address]- 9192 Jun, [facility] [id number] [place] [address]- 8436 Jun, [facility] [address] [id number], [place] [address] 87[address] November, IMMUNIZATIONS No Known Immunizations SOCIAL HISTORY Never Assessed REASON FOR VISIT Sinus c/o f/uRenee Valdovinos PLAN OF CARE Activity Details Follow Up prn Reason: VITAL SIGNS Height 70 in 2017-07-10 Weight 201.4 lbs 2017-07-10 Temperature 98.6 degrees Fahrenheit 2017-07-10 Heart Rate 81 bpm 2017-07-10 Respiratory Rate 18 2017-07-10 BMI 28.89 kg/m2 2017-07-10 Blood pressure systolic 124 mmHg 2017-07-10 Blood pressure diastolic 90 mmHg 2017-07-10 MEDICATIONS Medication Instructions Dosage Frequency Start Date End Date Duration Status Propranolol HCl 10 MG Orally Twice a day 1 tablet 12h Active Allopurinol 100 MG Orally Once a day 1 tablet 24h Active Xanax 0.5 MG Orally Twice a day 1 tablet 12h Active Augmentin 875-125 MG Orally every 12 hrs 1 tablet 12h 10 day(s) Active Eliquis 5 MG Active RESULTS No Results PROCEDURES No Known [...]
--- OUTSIDE RECORDS SUMMARY | 2018-10-31 07:49 | XMS REPORT ---
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.00 Active Problem Palpitations 785.1 Active Problem Postnasal drip 784.91 Active Problem Falling from unspecified high place, undetermined whether accidentally or purposely inflicted E987.9 Active Assessment Acute maxillary sinusitis, recurrence not specified J01.00 Active Problem Unspecified sleep apnea 780.57 Active Problem Cough 786.2 Active Medications Medication Code System Code Instructions Start Date End Date Status Dosage Eliquis [facility] [address]-55 5 MG Orally 2 times a day 1 tablet Zithromax Z-Chris [facility] [address]-40 250 MG Orally Once a day Jun 02, 2015 Jun 07, 2015 2 tablets on the first day, then 1 tablet daily for 4 days Inderal LA [facility] [address]-28 120 MG Orally 2 times a day 1 capsule Digoxin [facility] [address]-35 125 mcg October 19, 2014 take 1 tablet ( 125 mcg) by oral route once daily Xanax [facility] [address]-90 0.5 mg December 03, 2012 take 1 tablet (0.5 mg ) by oral route 3 times per day PRN Allopurinol [facility] [address]-65 300 mg December 03, 2012 take 0.5 tablet by Oral route 1 time per day Procedures Procedure Coding System Code Date Office Visit, Est Pt., Level 3 CPT-4 04176 Jun 02, 2015 Vital Signs Date/Time: Jun 02, 2015 Temperature 98.4 F Weight 198.6 lbs Height 70 in BMI 28.49 Index Blood Pressure Diastolic 70 mmHg Blood Pressure Systolic 120 mmHg Cardiac Monitoring Heart Rate 80 bpm Results No Known Results Summary Purpose [employer] Submission
--- OUTSIDE RECORDS SUMMARY | 2018-10-31 07:49 | XMS REPORT ---
Author Author KORY MACIEL Organization [employer] Address Unknown Phone Unavailable Care Team Providers Care Intelligence Director Name Role Phone KORY MACIEL CP Unavailable Allergies, Adverse Reactions, Alerts Substance [...] accidentally or purposely inflicted E987.9 Active Assessment Hordeolum externum of left upper eyelid H00.014 Active Problem Unspecified sleep apnea 780.57 Active Problem Cough 786.2 Active Medications Medication Code System Code Instructions Start Date End Date Status Dosage Xanax [facility] [address]-54 0.5 mg December 03, 2012 take 1 tablet (0.5 mg ) by oral route 3 times per day PRN Eliquis [facility] [address]-45 5 MG Orally 2 times a day 1 tablet Allopurinol [facility] [address]-76 300 mg December 03, 2012 take 0.5 tablet by Oral route 1 time per day Propranolol HCl [facility] [address]-19 10 MG Orally Twice a day 1 tablet Procedures Procedure Coding System Code Date Office Visit, Est Pt., Level 3 CPT-4 49851 February 06, 2016 Vital Signs Date/Time: February 06, 2016 Cardiac Monitoring Heart Rate 86 bpm Weight 209.2 lbs Height 70 in Blood Pressure Diastolic 90 mmHg Blood Pressure Systolic 134 mmHg Results No Known Results Summary Purpose [employer] Submission
--- OUTSIDE RECORDS SUMMARY | 2018-10-31 07:49 | XMS REPORT ---
Author Author KORY MACIEL [facility] Address [address] [place] [address] Care Team Providers Care Buyer Internship Name Role Phone JANELL KORY Unavailable PROBLEMS Type Condition ICD9-CM Code [id number] Code Onset Dates Condition Status SNOMED Code Assessment Left maxillary sinusitis J32.0 Mar, Active 66783732 Assessment Acute pain of right shoulder M25.511 Mar, Active 52583193 Problem Postnasal drip 784.91 Active 49996572 Problem Nondependent alcohol abuse, unspecified drunkenness 305.00 Active 42740270 Problem Cough 786.2 Active 04144605 Problem Falling from unspecified high place, undetermined whether accidentally or purposely inflicted E987.9 Active Problem Palpitations 785.1 Active 69254990 Problem Unspecified sleep apnea 780.57 Active 99537593 ALLERGIES Substance Reaction Event Type Date Status Pradaxa Unknown Drug Allergy Mar, Active Uloric Unknown Drug Allergy Mar, Active Lopressor Unknown Drug Allergy Mar, Active Indomethacin Unknown Drug Allergy Mar, Active Flagyl Unknown Drug Allergy Mar, Active Diltiazem Unknown Drug Allergy Mar, Active SOCIAL HISTORY No smoking Hx information available PLAN OF CARE VITAL SIGNS Height 70 in 2016-04-05 Weight 203.6 lbs 2016-04-05 Heart Rate 72 bpm 2016-04-05 Respiratory Rate 16 2016-04-05 BMI 29.21 kg/m2 2016-04-05 Blood pressure systolic 146 mmHg 2016-04-05 Blood pressure diastolic 98 mmHg 2016-04-05 MEDICATIONS Medication Instructions Dosage Frequency Start Date End Date Duration Status Allopurinol 300 mg take 0.5 tablet by Oral route 1 time per day November Active Augmentin 875-125 MG Orally every 12 hrs 1 tablet 12h Mar,Mar 10 day(s) Active Propranolol HCl 10 MG Orally Twice a day 1 tablet 12h Active Eliquis 5 MG Orally 2 times a day 1 tablet 12h Active Xanax 0.5 mg take 1 tablet (0.5 mg) by oral route 3 times per day PRN November, Active RESULTS No Results PROCEDURES Procedure Date Ordered Related Diagnosis Body Site Office Visit, Est Pt., Level 3 Apr 05, 2016 IMMUNIZATIONS No Known Immunizations
--- OUTSIDE RECORDS SUMMARY | 2018-10-31 07:50 | XMS REPORT | Continuity of Care Document ---
Author Author [facility] Address Unknown Phone Unavailable Allergies Active Description Code Type Severity Reaction Onset Reported/Identified Relationship to Patient Clinical Status Yes Flagyl Drug Allergy N/A N/A 12/05/2010 Yes Uloric Drug Allergy N/A N/A 12/05/2010 Yes Flagyl Drug Allergy 12/05/2010 Yes Uloric Drug Allergy 12/05/2010 Yes indomethacin [id number] Drug Allergy Moderate facial swelling 12/05/2010 Yes indomethacin sodium [id number] Drug Allergy Moderate facial swelling 12/05/2010 Yes metronidazole [id number] Drug Allergy Moderate skin grey 12/05/2010 Yes Metronidazole HCl [id number] Drug Allergy Moderate skin grey 12/05/2010 Yes azithromycin [id number] Drug Allergy Mild n/v 12/05/2010 Yes Pradaxa Drug Allergy N/A N/A 04/18/2011 Yes Pradaxa Drug Allergy 04/18/2011 Yes Lopressor 25 mg tablet Drug Allergy N/A N/A 02/28/2012 Yes Lopressor 25 mg tablet Drug Allergy 02/28/2012 Yes diltiazem Drug Allergy N/A N/A 11/05/2012 Yes indomethacin Drug Allergy N/ A N/A 11/05/2012 Yes diltiazem Drug Allergy 11/05/2012 Yes indomethacin Drug Allergy 11/05/2012 Medications There is no data. Problems Date Dx Coded Attending Type Code Diagnosis Diagnosed By 12/05/2010 300.02 AN GEN ANXIETY 12/05/2010 303.90 OTHER AND UNSPECIFIED ALCOHOL DEPENDENCE UNSPECIFIED DRINKING BEHAVIOR 12/05/2010 427.31 ATRIAL FIBRILLATION 12/05/2010 786.05 SHORTNESS OF BREATH 12/05/2010 300.02 AN GEN ANXIETY 12/05/2010 303.90 OTHER AND UNSPECIFIED ALCOHOL DEPENDENCE UNSPECIFIED DRINKING BEHAVIOR 12/05/2010 427.31 ATRIAL FIBRILLATION 12/05/2010 786.05 SHORTNESS OF BREATH 12/05/2010 WILD LAUGHLIN APRN 300.02 AN GEN ANXIETY 12/05/2010 ELDA LAUGHLIN APRNIA R 303.90 OTHER AND UNSPECIFIED ALCOHOL DEPENDENCE UNSPECIFIED DRINKING BEHAVIOR 12/05/2010 ELDA LAUGHLIN APRNIA R 427.31 ATRIAL FIBRILLATION 12/05/2010 WILD LAUGHLIN APRN R 786.05 SHORTNESS OF BREATH 12/05/2010 300.02 AN GEN ANXIETY 12/05/2010 303.90 OTHER AND UNSPECIFIED ALCOHOL DEPENDENCE UNSPECIFIED DRINKING BEHAVIOR 12/05/2010 427.31 ATRIAL FIBRILLATION 12/05/2010 786.05 SHORTNESS OF BREATH 12/05/2010 SIN IRELAND APRNA S 300.02 AN GEN ANXIETY 12/05/2010 SIN [place] APRNA S 303.90 OTHER AND UNSPECIFIED ALCOHOL DEPENDENCE UNSPECIFIED DRINKING BEHAVIOR 12/05/2010 ANGELINA IRELAND APRN S 427.31 ATRIAL FIBRILLATION 12/05/2010 ANGELINA IRELAND APRN S 786.05 SHORTNESS OF BREATH 12/05/2010 SUBHA SCHNEIDER MD 300.02 AN GEN ANXIETY 12/05/2010 SUBHA SCHNEIDER MD 303.90 OTHER AND UNSPECIFIED ALCOHOL DEPENDENCE UNSPECIFIED DRINKING BEHAVIOR 12/05/2010 SUBHA SCHNEIDER MD 427.31 ATRIAL FIBRILLATION 12/05/2010 SUBHA SCHNEIDER MD 786.05 SHORTNESS OF BREATH 12/05/2010 SUBHA SCHNEIDER MD 300.02 AN GEN ANXIETY 12/05/2010 SUBHA SCHNEIDER MD 303.90 OTHER AND UNSPECIFIED ALCOHOL DEPENDENCE UNSPECIFIED DRINKING BEHAVIOR 12/05/2010 SUBHA SCHNEIEDR MD 427.31 ATRIAL FIBRILLATION 12/05/2010 SUBHA SCHNEIDER MD 786.05 SHORTNESS OF BREATH 12/06/2010 Ot 274.9 12/06/2010 Ot 300.00 12/06/2010 Ot 303.90 12/06/2010 Ot 305.1 12/06/2010 Ot 397.0 12/06/2010 Ot 424.0 12/06/2010 Ot 427.31 07/20/2011 274.9 GOUT 07/20/2011 729.5 ARM PAIN 07/20/2011 274.9 GOUT 07/20/2011 729.5 ARM PAIN 07/20/2011 WILD LAUGHLIN APRN R 274.9 GOUT 07/20/2011 WILD LAUGHLIN APRN R 729.5 ARM PAIN 07/20/2011 274.9 GOUT 07/20/2011 729.5 ARM PAIN 07/20/2011 ANGELINA IRELAND APRN S 274.9 GOUT 07/20/2011 ANGELINA IRELAND APRN S 729.5 ARM PAIN 07/20/2011 SUBHA SCHNEIDER MD 274.9 GOUT 07/20/2011 SUBHA SCHNEIDER MD 729.5 ARM PAIN 07/20/2011 SUBHA SCHNEIDER MD 274.9 GOUT 07/20/2011 SUBHA SCHNEIDER MD 729.5 ARM PAIN 08/29/2011 784.91 drip or drainage down throat from above 08/29/2011 784.91 drip or drainage down throat from above 08/29/2011 WILD LAUGHLIN APRN R 784.91 drip or drainage down throat from above 08/29/2011 784.91 drip or drainage down throat from above 08/29/2011 ANGELINA IRELAND APRN S 784.91 drip or drainage down throat from above 08/29/2011 SUBHA SCHNEIDER MD 784.91 drip or drainage down throat from above 08/29/2011 SUBHA SCHNEIDER MD 784.91 drip or drainage down throat from above 02/28/2012 305.00 ALCOHOL ABUSE UNSPEC 02/28/2012 305.00 ALCOHOL ABUSE UNSPEC 02/28/2012 WILD LAUGHLIN APRN R 305.00 ALCOHOL ABUSE UNSPEC 02/28/2012 305.00 ALCOHOL ABUSE UNSPEC 02/28/2012 ANGELINA IRELAND APRN S 305.00 ALCOHOL ABUSE UNSPEC 02/28/2012 SUBHA SCHNEIDER MD 305.00 ALCOHOL ABUSE UNSPEC 02/28/2012 SUBHA SCHNEIDER MD 305.00 ALCOHOL ABUSE UNSPEC 11/05/2012 785.1 PALPITATIONS 11/05/2012 785.1 PALPITATIONS 11/05/2012 WILD LAUGHLIN APRN R 785.1 PALPITATIONS 11/05/2012 ANGELINA IRELAND APRN S 785.1 PALPITATIONS 11/05/2012 SUBHA SCHNEIDER MD 785.1 PALPITATIONS 11/05/2012 SUBHA SCHNEIDER MD 785.1 PALPITATIONS 12/30/2012 JACE DICKSON FACC, ALI FACP CCDS Ot 300.00 ANXIETY STATE NOS 12/30/2012 [facility] 305.03 ALCOHOL ABUSE-IN REMISS 12/30/2012 JACE [facility]ICKSON [facility] Ot 305.1 TOBACCO USE DISORDER 12/30/2012 JACE DICKSON FACC, [facility] CCD[facility] Ot 414.01 CORONARY ATHEROSCLEROSIS OF [place] CORON 12/30/2012 JACE [facility]SON [facility] Ot 427.31 ATRIAL FIBRILLATION 12/30/2012 JACE [facility]SON [facility] Ot V58.61 ANTICOAGULANTS,LT,CURRENT USE 12/30/2012 JACE DICKSON [facility], [facility] Ot V58.69 OTH MED,LT,CURRENT USE 07/07/2013 BAIMALAUREN L CAREER PLACEMENT SPECIALIST Ot 427.31 ATRIAL FIBRILLATION 07/07/2013 BAIMAASHANTILAUREN L CAREER PLACEMENT SPECIALIST Ot 785.1 PALPITATIONS 02/12/2014 WILD LAUGHLIN APRN R 786.2 COUGH 02/12/2014 ANGELINA IRELAND APRN S 786.2 COUGH 02/12/2014 SUBHA SCHNEIDER MD 786.2 COUGH 02/12/2014 SUBHA SCHNEIDER MD 786.2 COUGH 07/12/2014 ANGELINA IRELAND APRN S 780.57 SLEEP APNEA 07/12/2014 SUBHA SCHNEIDER MD 780.57 SLEEP APNEA 07/12/2014 SUBHA SCHNEIDER MD 780.57 SLEEP APNEA 08/26/2014 GUY NASH MD Ot 427.31 08/26/2014 GUY NASH MD Ot 786.50 08/26/2014 GUY NASH MD Ot 794.30 08/26/2014 GUY NASH MD Ot V64.3 08/26/2014 Ot 427.31 08/26/2014 Ot 427.31 08/26/2014 Ot 785.1 08/26/2014 SONI RODRIGUEZ MD Ot 427.31 09/22/2014 Ot 327.23 OBSTRUCTIVE SLEEP APNEA (ADULT) (PEDIATR 09/22/2014 Ot 786.09 RESPIRATORY ABNORM NEC 10/19/2014 SUBHA SCHNEIDER MD E987.9 FALLING FROM UNSPECIFIED SITE UNDETERMINED WHETHER ACCIDENTALLY OR PURPOSELY INFLICTED 10/19/2014 SUBHA SCHNEIDER MD E987.9 FALLING FROM UNSPECIFIED SITE UNDETERMINED WHETHER ACCIDENTALLY OR PURPOSELY INFLICTED 11/09/2014 SUBHA SCHNEIDER MD 477.0 ALLERGIC RHINITIS DUE TO POLLEN 11/30/2014 SAAD DICKSON, GUY Ot 427.31 11/30/2014 SAAD DICKSON, GUY Ot 786.50 11/30/2014 SAAD DICKSON, GUY Ot 794.30 11/30/2014 GUY NASH MD Ot V64.3 11/30/2014 Ot 427.31 11/30/2014 Ot 427.31 11/30/2014 Ot 785.1 11/30/2014 SONI RODRIGUEZ MD Ot 427.31 05/11/2015 ANA WOMACK APRN Ot I48.91 UNSPECIFIED ATRIAL FIBRILLATION 05/11/2015 ANA WOMACK APRN Ot R42 DIZZINESS AND GIDDINESS 05/11/2015 LAUREN PERKINS L CAREER PLACEMENT SPECIALIST Ot I48.91 08/24/2016 GUY NASH MD Ot 427.31 ATRIAL FIBRILLATION 08/24/2016 SAAD DICKSON, GUY Ot 786.50 CHEST PAIN NOS 08/24/2016 SAAD DICKSON, GUY Ot 794.30 ABN CARDIOVASC STUDY NOS 08/24/2016 GUY NASH MD Ot V64.3 NO PROC FOR REASONS NEC 08/24/2016 Ot 427.31 ATRIAL FIBRILLATION 08/24/2016 Ot 427.31 ATRIAL FIBRILLATION 08/24/2016 Ot 785.1 PALPITATIONS 08/24/2016 SONI RODRIGUEZ MD Ot 427.31 ATRIAL FIBRILLATION 08/24/2016 LAUREN PERKINS L CAREER PLACEMENT SPECIALIST Ot I48.91 UNSPECIFIED ATRIAL FIBRILLATION 09/05/2016 BERNIEMA LAUREN L CAREER PLACEMENT SPECIALIST Ot I48.1 PERSISTENT ATRIAL FIBRILLATION 09/05/2016 BAIMA LAUREN L CAREER PLACEMENT SPECIALIST Ot R06.09 OTHER FORMS OF DYSPNEA 09/05/2016 BAIMA LAUREN L CAREER PLACEMENT SPECIALIST Ot Z72.0 TOBACCO USE 09/20/2016 BAIMA LAUREN L CAREER PLACEMENT SPECIALIST Ot I48.1 PERSISTENT ATRIAL FIBRILLATION 09/20/2016 BAIMA LAUREN L CAREER PLACEMENT SPECIALIST Ot R06.09 OTHER FORMS OF DYSPNEA 09/20/2016 BERNIEMA LAUREN L CAREER PLACEMENT SPECIALIST Ot Z72.0 TOBACCO USE 10/12/2016 GUY NASH MD Ot 427.31 ATRIAL FIBRILLATION 10/12/2016 GUY NASH MD Ot 786.50 CHEST PAIN NOS 10/12/2016 GUY NASH MD Ot 794.30 ABN CARDIOVASC STUDY NOS 10/12/2016 GUY NASH MD Ot V64.3 NO PROC FOR REASONS NEC 10/12/2016 Ot 427.31 ATRIAL FIBRILLATION 10/12/2016 Ot 427.31 ATRIAL FIBRILLATION 10/12/2016 Ot 785.1 PALPITATIONS 10/12/2016 SONI RODRIGUEZ MD Ot 427.31 ATRIAL FIBRILLATION 10/12/2016 BAIMA, LAUREN L CAREER PLACEMENT SPECIALIST Ot I48.91 UNSPECIFIED ATRIAL FIBRILLATION 10/12/2016 BAIMA, LAUREN L CAREER PLACEMENT SPECIALIST Ot I48.1 PERSISTENT ATRIAL FIBRILLATION 10/12/2016 BAIMA, LAUREN L CAREER PLACEMENT SPECIALIST Ot R06.09 OTHER FORMS OF DYSPNEA 10/12/2016 BAIMA, LAUREN L CAREER PLACEMENT SPECIALIST Ot Z72.0 TOBACCO USE 11/01/2016 BAIMA, LAUREN L CAREER PLACEMENT SPECIALIST Ot I48.1 PERSISTENT ATRIAL FIBRILLATION 11/01/2016 BAIMA, LAUREN L CAREER PLACEMENT SPECIALIST Ot R06.09 OTHER FORMS OF DYSPNEA 11/01/2016 BAIMA, LAUREN L CAREER PLACEMENT SPECIALIST Ot Z72.0 TOBACCO USE 08/19/2018 Ot 427.31 ATRIAL FIBRILLATION 08/19/2018 Ot 785.1 PALPITATIONS 08/19/2018 SONI RODRIGUEZ MD Ot 427.31 ATRIAL FIBRILLATION 08/19/2018 BAIMA, LAUREN L CAREER PLACEMENT SPECIALIST Ot I48.91 UNSPECIFIED ATRIAL FIBRILLATION 08/19/2018 BAIMA, LAUREN L CAREER PLACEMENT SPECIALIST Ot I48.1 PERSISTENT ATRIAL FIBRILLATION 08/19/2018 BAIMA, LAUREN L CAREER PLACEMENT SPECIALIST Ot R06.09 OTHER FORMS OF DYSPNEA 08/19/2018 BAIMA, LAUREN L CAREER PLACEMENT SPECIALIST Ot Z72.0 TOBACCO USE 08/28/2018 CAROLYN DICKSON, ANGELA Brewster Ot Z01.818 ENCOUNTER FOR OTHER PREPROCEDURAL EXAMIN 08/29/2018 CAROLYN DICKSON, ANGELA Brewster Ot Z01.818 ENCOUNTER FOR OTHER PREPROCEDURAL EXAMIN 09/03/2018 Ot 427.31 ATRIAL FIBRILLATION 09/03/2018 Ot 785.1 PALPITATIONS 09/03/2018 SONI RODRIGUEZ MD Ot 427.31 ATRIAL FIBRILLATION 09/03/2018 LAUREN PERKINS CAREER PLACEMENT SPECIALIST Ot I48.91 UNSPECIFIED ATRIAL FIBRILLATION 09/03/2018 LAUREN PERKINS CAREER PLACEMENT SPECIALIST Ot I48.1 PERSISTENT ATRIAL FIBRILLATION 09/03/2018 LAUREN PERKINS CAREER PLACEMENT SPECIALIST Ot R06.09 OTHER FORMS OF DYSPNEA 09/03/2018 LAUREN PERKINS CAREER PLACEMENT SPECIALIST Ot Z72.0 TOBACCO USE 09/03/2018 Ot 427.31 ATRIAL FIBRILLATION 09/03/2018 Ot 785.1 PALPITATIONS 09/03/2018 MICHAEL DICKSON, SONI Ot 427.31 ATRIAL FIBRILLATION 09/03/2018 LAUREN PERKINS CAREER PLACEMENT SPECIALIST Ot I48.91 UNSPECIFIED ATRIAL FIBRILLATION 09/03/2018 LAUREN PERKINS CAREER PLACEMENT SPECIALIST Ot I48.1 PERSISTENT ATRIAL FIBRILLATION 09/03/2018 LAUREN PERKINS CAREER PLACEMENT SPECIALIST Ot R06.09 OTHER FORMS OF DYSPNEA 09/03/2018 LAUREN PERKINS CAREER PLACEMENT SPECIALIST Ot Z72.0 TOBACCO USE 10/24/2018 CAROLYN DICKSON, ANGELA Brewster Ot Z01.818 ENCOUNTER FOR OTHER PREPROCEDURAL EXAMIN 10/27/2018 ANGELA LEON MD Ot Z01.818 ENCOUNTER FOR OTHER PREPROCEDURAL EXAMIN 10/27/2018 ANGELA LEON MD Ot Z01.818 ENCOUNTER FOR OTHER PREPROCEDURAL EXAMIN 10/28/2018 ANGELA LEON MD Ot Z01.818 ENCOUNTER FOR OTHER PREPROCEDURAL EXAMIN Procedures Code Description [place] [address] NUCLEAR STRESS TESTING 11/05/2012 47831 HOLTER MONITOR 11/05/2012 46000 OXIMETRY 11/05/2012 31246 OXIMETRY 12/08/2012 42195 OXIMETRY 02/12/2014 OtolarynAngela Lopez 07/18/2014 Results Test Result Range PDM - 09 PANEL (PROFILE 1) - 10/24/18 13:30 Prescribed Drug 1 Alprazolam NRG Creatinine 164.5 mg/dL > or=20.0 pH 6.85 4.5 - 9.0 Oxidant NEGATIVE mcg/mL <200 Amphetamines NEGATIVE ng/mL <500 medMATCH Amphetamines CONSISTENT NRG Benzodiazepines POSITIVE ng/mL <100 Marijuana Metabolite NEGATIVE ng/mL <20 medMATCH Marijuana Metab CONSISTENT NRG Cocaine Metabolite NEGATIVE ng/mL <150 medMATCH Cocaine Metab CONSISTENT NRG Opiates NEGATIVE ng/mL <100 medMATCH Opiates CONSISTENT NRG Oxycodone NEGATIVE ng/mL <100 medMATCH Oxycodone CONSISTENT NRG COMMENT NRG Alphahydroxyalprazolam 63 ng/mL <25 medMATCH aOH alprazolam CONSISTENT NRG Alphahydroxymidazolam NEGATIVE ng/mL <50 medMATCH aOH midazolam CONSISTENT NRG Alphahydroxytriazolam NEGATIVE ng/mL <50 medMATCH aOH triazolam CONSISTENT NRG Aminoclonazepam NEGATIVE ng/mL <25 medMATCH Aminoclonazepam CONSISTENT NRG Hydroxyethylflurazepam NEGATIVE ng/mL <50 medMATCH OH,Et flurazepam CONSISTENT NRG Lorazepam NEGATIVE ng/mL <50 medMATCH Lorazepam CONSISTENT NRG Nordiazepam NEGATIVE ng/mL <50 medMATCH Nordiazepam CONSISTENT NRG Oxazepam NEGATIVE ng/mL <50 medMATCH Oxazepam CONSISTENT NRG Temazepam NEGATIVE ng/mL <50 medMATCH Temazepam CONSISTENT NRG Barbiturates NEGATIVE ng/mL <300 medMATCH Barbiturates CONSISTENT NRG Methadone Metabolite NEGATIVE ng/mL <100 medMATCH Methadone Metab CONSISTENT NRG Phencyclidine NEGATIVE ng/mL <25 medMATCH Phencyclidine CONSISTENT NRG Encounters ACCT No. Visit Date/Time Discharge Status Pt. Type Provider Facility Loc./Unit Complaint [id number] 11/09/2014 15:56:00 11/09/2014 23:59:59 CLS Outpatient SUBHA SCHNEIDER MD [id number] 10/19/2014 15:35:00 10/19/2014 23:59:59 CLS Outpatient SUBHA SCHNEIDER MD [id number] 07/12/2014 14:53:00 07/12/2014 23:59:59 [facility] Outpatient ANGELINA IRELAND APRN [id number] 02/12/2014 12:41:00 02/12/2014 23:59:59 [facility] Outpatient WILD LAUGHLIN APRN [id number] 11/05/2012 09:25:00 11/05/2012 23:59:59 CLS Outpatient [id number] 02/28/2012 12:45:00 02/28/2012 23:59:59 [facility] Outpatient [id number] 12/03/2012 08:24:00 Document Registration [id number] 10/24/2018 11:00:00 10/24/2018 23:59:59 CLS Outpatient ADRIEL DICKSON, VINAY Mccracken [facility] [address] [id number] 10/24/2018 11:00:00 Document Registration [id number] 10/27/2018 13:30:00 10/27/2018 13:35:00 DIS Outpatient ANGELA LEON MD [facility] PREOP CHRONIC SINUSITIS [id number] 09/04/2018 07:30:00 09/04/2018 23:59:59 CLS Preadmit ANGELA LEON MD Via [facility] CHRONIC SINUSITIS; POLYP [id number] 08/28/2018 05:36:00 08/28/2018 13:27:00 DIS Outpatient ANGELA LEON MD [facility] PREOP BILATERAL ESS; SEPTOPLASTY;BILAT RED INF TURBINATES [id number] 09/04/2016 10:31:00 09/04/2016 23:59:59 CLS Outpatient LAUREN PERKINS [facility] CARD HUMPHREYS,AFIB,TOBACCO USER [id number] 05/11/2015 12:23:00 05/11/2015 15:47:00 DIS Emergency ANA WOMACK APRN [facility] ER DIZZY,DISORIENTED [id number] 04/29/2015 10:26:00 04/29/2015 23:59:59 CLS Outpatient LAUREN PERKINS [facility] CARD AFIB [id number] 04/27/2014 17:04:00 04/27/2014 23:59:59 CLS Outpatient SONI RODRIGUEZ MD [facility] RT AF [id number] 04/08/2013 13:33:00 07/07/2013 00:01:00 DIS Outpatient LAUREN PERKINS [facility] CARD AFIB,PALPITATIONS [id number] 12/30/2012 10:52:00 12/30/2012 20:40:00 DIS Outpatient JACE DICKSON FACC, JOHN FACNarcisa CCDS [facility] CATH CP,AFIB, ABNORMAL STRESS TEST [id number] 12/08/2012 10:49:00 12/08/2012 23:59:59 CLS Outpatient SAAD DICKSON, GUY [facility] CP, AFIB, ABN STRESS [id number] 10/31/2018 07:44:00 ACT Outpatient CAROLYN DICKSON, ANGELA Brewster [facility] CHRONIC SINUSITIS [id number] 09/21/2014 20:59:00 Document Registration [id number] 07/08/2013 13:00:00 Document Registration [id number] 02/06/2013 12:00:00 Document Registration [id number] 12/05/2010 16:57:00 Document Registration
[2018-10-31 08:00] VITALS: BP 110/87
[2018-10-31] MEDS ORDERED: HYDROCORTISONE 100 MG/2 ML (Solu-CORTEF) VIAL IV ONE (08:00)
[2018-10-31] MEDS ORDERED: AMPICILLIN/SULBACTAM INJECTION 1.5 GM in NS (IVPB) 100 ML IV ONE (08:00)
[2018-10-31] MEDS: LACTATED RINGERS 1,000 ML IV PRN ×2 (08:10→11:06)
[2018-10-31] MEDS ORDERED: BSS 15 ML ONE (08:16)
[2018-10-31] MEDS ORDERED: PHENYLEPHRINE 0.5% NASAL SPR (NEO-SYNEPHRINE) REG ONE (08:16)
[2018-10-31] MEDS ORDERED: COCAINE HCL 4% 2 ML SYR ONE (08:16)
[2018-10-31] MEDS ORDERED: LIDOCAINE/EPI 1%-1:100,000 (XYLOCAINE) 20ML ONE (08:16)
[2018-10-31] MEDS ORDERED: HYDROCORTISONE 100 MG/2 ML (Solu-CORTEF) VIAL ONE (08:19)
[2018-10-31] MEDS ORDERED: MIDAZOLAM 2 MG/2 ML (VERSED) VIAL ONE (08:20)
[2018-10-31] MEDS ORDERED: ROCURONIUM 10 MG/ML 5 ML SYRINGE IV ONE (08:20)
[2018-10-31] MEDS ORDERED: DEXAMETHASONE 10 MG/ML (DECADRON) 1 ML VIAL ONE (08:20)
[2018-10-31] MEDS ORDERED: ONDANSETRON 4 MG/2 ML (SDV) Z0FRAN ONE (08:20)
[2018-10-31] MEDS ORDERED: proPOfol 200 MG/20 ML (DIPRIVAN) VIAL IV ONE (08:20)
[2018-10-31] MEDS ORDERED: LIDOCAINE PF 2% 5 ML (XYLOCAINE) VIAL ONE (08:20)
[2018-10-31] MEDS ORDERED: fentaNYL INJECTION 100 MCG/2 ML AMP ONE (08:20)
[2018-10-31] MEDS ORDERED: SEVOFLURANE (ULTANE) 15 ML INHAL SOLN ONE ×6 (08:20→11:05)
[2018-10-31 08:34] LABS: BASOPHILS % (AUTO) 0 % (0-10); EOSINOPHILS # (AUTO) 0.3 10^3/uL (0.0-0.3); EOSINOPHILS % (AUTO) 3 % (0-10); HEMATOCRIT 45 % (40-54); HEMOGLOBIN 15.6 G/DL (13.3-17.7); LYMPHOCYTES # (AUTO) 1.7 X 10^3 (1.0-4.0); LYMPHOCYTES % (AUTO) 17 % (12-44); MEAN CORPUSCULAR HEMOGLOBIN 34 PG (25-34); MEAN CORPUSCULAR HGB CONC 35 G/DL (32-36); MEAN CORPUSCULAR VOLUME 97 FL (80-99); MEAN PLATELET VOLUME 9.8 FL (7.4-10.4); MONOCYTES # (AUTO) 1.5 X 10^3 (0.0-1.0); MONOCYTES % (AUTO) 15 % (0-12); NEUTROPHILS # (AUTO) 6.5 X 10^3 (1.8-7.8); NEUTROPHILS % (AUTO) 65 % (42-75); PLATELET COUNT 184 10^3/uL (130-400); RED CELL DISTRIBUTION WIDTH 12.9 % (10.0-14.5)
[2018-10-31 08:53] LABS: BUN/CREATININE RATIO 11; CARBON DIOXIDE 24 MMOL/L (21-32); CHLORIDE 101 MMOL/L (98-107); CREATININE SERUM 0.95 MG/DL (0.60-1.30); GFR ESTIMATED > 60; GLUCOSE 111 MG/DL (70-105); POTASSIUM 3.8 MMOL/L (3.6-5.0); SODIUM 135 MMOL/L (135-145)
--- NOTE | 2018-10-31 09:13 | Progress Note-Pre Operative ---
Pre-Operative Progress Note H&P Reviewed The H&P was reviewed, patient examined and no changes noted. Date Seen by Provider: Oct 31, 2018 Time Seen by Provider: 09:15 Date H&P Reviewed: Oct 31, 2018 Time H&P Reviewed: 09:15 Pre-Operative Diagnosis: Bilat Chronci Sinusisis, Bialt Hyper of Inf Turbs ANGELA LEON MD Oct 31, 2018 09:13
[2018-10-31] MEDS ORDERED: ESMOLOL 100 MG/10 ML (BREVIBLOC) VIAL ONE (09:44)
[2018-10-31] MEDS ORDERED: GLYCOPYRROLATE 0.2 MG/ML (ROBINUL) 2 ML VIAL ONE (10:48)
[2018-10-31] MEDS ORDERED: NEOSTIGMINE 1 MG/ML 5 ML SYRINGE ONE (10:48)
[2018-10-31] MEDS ORDERED: D5 1/2 NS W/KCL 20 MEQ/L 1,000 ML IV SCH (10:57)
--- NOTE | 2018-10-31 10:57 | Progress Note-Post Operative ---
Post-Operative Progess Note Surgeon (s)/Junior Data Analyst (s) Surgeon ANGELA LEON MD Junior Data Analyst n/a Pre-Operative Diagnosis Bilat Chronci Sinusisis, Bialt Hyper of Inf Turbs Post-Operative Diagnosis same Post-Op Procedure Note Date of Procedure: Oct 31, 2018 Name of Procedure Performed: Bilat ESS, Bilat Red Of Turbs, Nasal Septoplasty Description & Findings Description and Findings: n/a Anesthesia Type get Estimated Blood Loss minimal Packing none. Specimen(s) collected/removed polyps-right antrochoanal polyp ANGELA LEON MD Oct 31, 2018 10:57
[2018-10-31] MEDS ORDERED: ACETAMINOPHEN 325 MG TABLET PO PRN (11:00)
[2018-10-31] MEDS ORDERED: HYDROcodone/APAP 5 MG/325 MG (LORTAB) TAB PO PRN (11:00)
[2018-10-31] MEDS ORDERED: PROMETHAZINE INJ 25 MG/ML (PHENERGAN) AMP IVP PRN (11:00)
[2018-10-31] MEDS ORDERED: predniSONE 20 MG TAB PO NR (11:00)
[2018-10-31] MEDS ORDERED: morphine INJ 10 MG/ML 1ML (SYR OR VIAL) IVP ONE (11:15)
[2018-10-31] MEDS ORDERED: ONDANSETRON 4 MG/2 ML (SDV) Z0FRAN IVP PRN (11:15)
[2018-10-31 12:00] VITALS: BP 132/95
[2018-10-31 12:30] VITALS: BP 138/91
[2018-10-31] MEDS ORDERED: PRD20T PO (12:31)
[2018-10-31] MEDS ORDERED: ACHD5005 PO (12:31)
[2018-10-31] MEDS ORDERED: AMOX-355 PO (12:31)
[2018-10-31 13:00] VITALS: BP 125/97
[2018-10-31 13:45] VITALS: BP 125/97
--- NOTE | 2018-10-31 14:23 | Anesthesia-General Post-Op ---
General Patient Condition Mental Status/LOC: Same as Preop Cardiovascular: Satisfactory Nausea/Vomiting: Absent Respiratory: Satisfactory Pain: Controlled Complications: Absent Post Op Complications Complications None Follow Up Care/Instructions Patient Instructions None needed. Anesthesia/Patient Condition Patient Condition Patient is doing well, no complaints, stable vital signs, no apparent adverse anesthesia problems. No complications reported per nursing. JUAN FRANCISCO HOAGN CRNA Oct 31, 2018 14:23
== END 2018-10-31 13:55 | disposition home or self-care (01) ==
LOC: SDC 07:44
PROVIDERS: ATTEND Otolaryngology Otolaryngology/Facial Plastic Surgery
DX: J32.2 Chronic ethmoidal sinusitis (principal); J33.8 Other polyp of sinus; J34.2 Deviated nasal septum; J34.3 Hypertrophy of nasal turbinates; I48.91 Unspecified atrial fibrillation; J45.909 Unspecified asthma, uncomplicated; G47.33 Obstructive sleep apnea (adult) (pediatric); F17.220 Nicotine dependence, chewing tobacco, uncomplicated; Z86.73 Personal history of transient ischemic attack (TIA), and cerebral infarction without residual deficits; Z79.01 Long term (current) use of anticoagulants; Z79.899 Other long term (current) drug therapy
CPT/HCPCS: 36415; 80048; 85025; 87081

== ENCOUNTER → 2019-06-04 | Outpatient (CLI) | payer MEDICARE, MEDICAID ==
[~2019-06-04] VITALS: Ht 177 cm; Wt 92.7 kg
[~2019-06-04] MED LIST changes: +ACHD5005 PO; +AMOX-355 PO; +PRD20T PO
== END | disposition home or self-care (01) ==
LOC: PREOP 06-01 05:39
PROVIDERS: ATTEND Surgery
DX: Z01.818 Encounter for other preprocedural examination (principal)

== ENCOUNTER → 2021-02-20 | Outpatient (CLI) | payer MEDICARE, MEDICAID ==
[~2021-02-20] MED LIST changes: -CLIN300C11 PO; +CLIN300C12 PO; -METO-395 PO; +MTP100TCR PO
== END ==
LOC: CARD 10:00
PROVIDERS: ATTEND Internal Medicine Cardiovascular Disease
DX: I48.21 Permanent atrial fibrillation (principal); I51.7 Cardiomegaly; I34.0 Nonrheumatic mitral (valve) insufficiency
CPT/HCPCS: 93306

== ENCOUNTER 2022-05-31 00:21 | Emergency (ER) | payer MEDICARE, MEDICAID ==
[~2022-05-31] VITALS: Ht 175 cm; Wt 81.0 kg
[~2022-05-31 00:21] MED LIST changes: +CLIN-144 PO; -CLIN300C12 PO
[2022-05-31 00:30] VITALS: BP 148/101
[2022-05-31 01:07] LABS: BASOPHILS % (AUTO) 0 % (0-10); EOSINOPHILS # (AUTO) 0.2 10^3/uL (0.0-0.3); EOSINOPHILS % (AUTO) 2 % (0-10); HEMATOCRIT 42 % (40-54); HEMOGLOBIN 14.7 g/dL (13.3-17.7); LYMPHOCYTES # (AUTO) 0.9 10^3/uL (1.0-4.0); LYMPHOCYTES % (AUTO) 9 % (12-44); MEAN CORPUSCULAR HEMOGLOBIN 34 pg (25-34); MEAN CORPUSCULAR HGB CONC 35 g/dL (32-36); MEAN CORPUSCULAR VOLUME 96 fL (80-99); MEAN PLATELET VOLUME 10.3 fL (9.0-12.2); MONOCYTES # (AUTO) 0.7 10^3/uL (0.0-1.0); MONOCYTES % (AUTO) 7 % (0-12); NEUTROPHILS # (AUTO) 7.8 10^3/uL (1.8-7.8); NEUTROPHILS % (AUTO) 81 % (42-75); PLATELET COUNT 172 10^3/uL (130-400); WHITE BLOOD COUNT 9.7 10^3/uL (4.3-11.0)
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
[2022-05-31 01:29] LABS: BUN/CREATININE RATIO 10; CALCIUM 9.1 MG/DL (8.5-10.1); CARBON DIOXIDE 28 MMOL/L (21-32); CHLORIDE 100 MMOL/L (98-107); CREATININE SERUM 1.36 MG/DL (0.60-1.30); GFR ESTIMATED 60; GLUCOSE 96 MG/DL (70-105); SODIUM 139 MMOL/L (135-145)
[2022-05-31] MEDS ORDERED: FURO-125 PO (01:37)
[2022-05-31] MEDS ORDERED: FUROSEMIDE 40 MG/4 ML INJ (LASIX) IVP ONE (01:45)
--- NOTE | 2022-05-31 06:53 | Diagnostic Imaging Report ---
EXAMINATION: Chest 1 view HISTORY: Shortness of breath. COMPARISON: None available. FINDINGS: The lung volumes are normal. No focal consolidation is seen. No large pleural effusion or pneumothorax is seen. The cardiomediastinal silhouette is normal in size and contour. There is calcified aortic atherosclerotic plaque. No acute osseous abnormality is seen. IMPRESSION: 1. No acute pleuroparenchymal process. Dictated by: Dictated on workstation # [id number]
== END 2022-05-31 02:10 | disposition home or self-care (01) ==
LOC: EDUNIT# 00:21 → ER FS 00:25
DX: I50.9 Heart failure, unspecified (principal); I48.20 Chronic atrial fibrillation, unspecified; F41.9 Anxiety disorder, unspecified; Z98.61 Coronary angioplasty status; Z86.79 Personal history of other diseases of the circulatory system; Z28.310 Unvaccinated for COVID-19
CPT/HCPCS: 36415; 71045; 80048; 83880; 84484; 85025; 93005

== ENCOUNTER → 2022-07-09 | Outpatient (CLI) | payer MEDICARE, MEDICAID ==
[~2022-07-09] MED LIST changes: +FURO-125 PO
== END ==
LOC: PREOP 05:31
PROVIDERS: ATTEND Surgery
DX: Z01.818 Encounter for other preprocedural examination (principal); K21.9 Gastro-esophageal reflux disease without esophagitis; Z86.010 Personal history of colon polyps

== ENCOUNTER 2022-08-10 13:24 | Emergency (ER) | payer MEDICARE, MEDICAID ==
[~2022-08-10] VITALS: Ht 175.3 cm; Wt 79.2 kg
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
[2022-08-10 13:50] LABS: BASOPHILS % (AUTO) 0 % (0-10); EOSINOPHILS # (AUTO) 0.3 10^3/uL (0.0-0.3); EOSINOPHILS % (AUTO) 3 % (0-10); HEMATOCRIT 46 % (40-54); HEMOGLOBIN 16.2 g/dL (13.3-17.7); LYMPHOCYTES % (AUTO) 10 % (12-44); MEAN CORPUSCULAR HEMOGLOBIN 34 pg (25-34); MEAN CORPUSCULAR HGB CONC 35 g/dL (32-36); MEAN CORPUSCULAR VOLUME 96 fL (80-99); MEAN PLATELET VOLUME 9.9 fL (9.0-12.2); MONOCYTES # (AUTO) 0.7 10^3/uL (0.0-1.0); MONOCYTES % (AUTO) 7 % (0-12); NEUTROPHILS # (AUTO) 7.7 10^3/uL (1.8-7.8); NEUTROPHILS % (AUTO) 79 % (42-75); PLATELET COUNT 231 10^3/uL (130-400); WHITE BLOOD COUNT 9.7 10^3/uL (4.3-11.0)
[2022-08-10 14:12] LABS: CHLORIDE 101 MMOL/L (98-107); POTASSIUM 4.2 MMOL/L (3.6-5.0); SODIUM 136 MMOL/L (135-145)
[2022-08-10 14:13] LABS: ALANINE AMINOTRANSFERASE 23 U/L (0-55); ALBUMIN 4.2 GM/DL (3.2-4.5); ALKALINE PHOSPHATASE 97 U/L (40-136); BILIRUBIN,TOTAL 0.8 MG/DL (0.1-1.0); BUN/CREATININE RATIO 6; CALCIUM 9.4 MG/DL (8.5-10.1); CARBON DIOXIDE 25 MMOL/L (21-32); CREATININE SERUM 1.36 MG/DL (0.60-1.30); GFR ESTIMATED 60; GLUCOSE 112 MG/DL (70-105); TOTAL PROTEIN 8.1 GM/DL (6.4-8.2)
[2022-08-10 14:14] LABS: LIPASE 28 U/L (8-78)
[2022-08-10] MEDS ORDERED: IOHEXOL 350 MG/ML 100 ML (OMNIPAQUE 350) VIAL IV ONE (14:15)
[2022-08-10] MEDS ORDERED: NS 100 ML (IVPB) BAG IV ONE (14:15)
[2022-08-10] MEDS ORDERED: CATHETER FLUSH 10 ML SYR IV PRN (14:15)
[2022-08-10] MEDS ORDERED: HOLD METFORMIN - RECEIVED CONTRAST 20 ML VIAL IV SCH (14:15)
[2022-08-10 14:28] LABS: BILIRUBIN,URINE 1+ (NEGATIVE); CLARITY,URINE CLEAR; COLOR,URINE YELLOW; GLUCOSE, URINE (UA) NEGATIVE (NEGATIVE); KETONES,URINE NEGATIVE (NEGATIVE); LEUKOCYTE ESTERASE ,URINE NEGATIVE (NEGATIVE); NITRITE,URINE NEGATIVE (NEGATIVE); PH,URINE 5.5 (5-9); PROTEIN,URINE NEGATIVE (NEGATIVE)
[2022-08-10 14:34] LABS: BACTERIA,URINE TRACE /HPF; WBC,URINE RARE /HPF
[2022-08-10 14:39] LABS: AMPHETAMINE SCREEN, URINE NEGATIVE (NEGATIVE); BENZODIAZEPINES SCREEN URINE POSITIVE (NEGATIVE); CANNABINOID SCREEN, URINE NEGATIVE (NEGATIVE); COCAINE SCREEN URINE NEGATIVE (NEGATIVE)
[2022-08-10 14:40] LABS: BARBITURATE SCREEN URINE NEGATIVE (NEGATIVE); METHADONE STAT NEGATIVE (NEGATIVE); OPIATE SCREEN URINE NEGATIVE (NEGATIVE); OXYCODONE STAT NEGATIVE (NEGATIVE); PROPOXYPHENE STAT NEGATIVE (NEGATIVE); TRICYCLIC ANTIDEPRESSANTS SCRE NEGATIVE (NEGATIVE)
--- NOTE | 2022-08-10 14:43 | Diagnostic Imaging Report ---
EXAMINATION: CT abdomen and pelvis with intravenous contrast. TECHNIQUE: Multiple contiguous axial images were obtained through the abdomen and pelvis after the uneventful administration of intravenous contrast. All CT scans use one or more of the following dose optimizing techniques: Automated exposure control, MA and/or KvP adjustment based on patient size and exam type or iterative reconstruction. HISTORY: Epigastric and periumbilical pain. COMPARISON: None available. FINDINGS: The heart is unremarkable. The included lung bases are clear. The liver, spleen, pancreas, adrenal glands, and kidneys have a normal appearance. Mild inflammatory changes are seen in the mesentery of the mid abdomen. Associated small mesenteric lymph nodes are present. The bowel loops are nondilated. The appendix is visualized in the right lower quadrant and has a normal appearance. There is no free fluid or free air. No acute osseous abnormalities. Ureters and bladder are grossly normal. There is no free air, loculated collection, or adenopathy in the pelvis. IMPRESSION: 1. Mild inflammatory changes in the mesentery of the mid abdomen, most suggestive of mesenteric panniculitis. No bowel obstruction. No free fluid or free air. Dictated by: Dictated on workstation # [id number]
[2022-08-10] MEDS ORDERED: OXYC1TAB87 PO (15:08)
[2022-08-10] MEDS ORDERED: oxyCODONE/APAP 5/325MG (PERCOCET 5) TABLET ONE (15:11)
[2022-08-10 15:13] VITALS: BP 129/84
[2022-08-10] MEDS ORDERED: oxyCODONE/APAP 5/325MG (PERCOCET 5) TABLET PO ONE (15:15)
== END 2022-08-10 15:15 | disposition home or self-care (01) ==
LOC: EDUNIT# 13:24 → ER FS 13:25
DX: K65.4 Sclerosing mesenteritis (principal); I48.91 Unspecified atrial fibrillation; Z79.01 Long term (current) use of anticoagulants; Z87.19 Personal history of other diseases of the digestive system; Z28.310 Unvaccinated for COVID-19; Z20.822 Contact with and (suspected) exposure to COVID-19
CPT/HCPCS: 36415; 74177; 80053; 80306; 81000; 83605; 83690; 83735; 84484; 85025; 87636; Q9967

== ENCOUNTER 2022-12-05 06:44 | Outpatient (CLI) | payer MEDICARE, MEDICAID ==
[~2022-12-05] VITALS: Ht 177.8 cm; Wt 81.2 kg
[~2022-12-05 06:44] MED LIST changes: +OXYC1TAB87 PO
[2022-12-06] MEDS ORDERED: LORA10TA76 PO (08:58)
[2022-12-06] MEDS ORDERED: FLUT15.845 NS (08:58)
== END 2022-12-06 09:06 | disposition home or self-care (01) ==
LOC: PREOP 06:44
PROVIDERS: ATTEND Surgery
DX: Z01.818 Encounter for other preprocedural examination (principal)

== ENCOUNTER 2022-12-17 08:20 | Day surgery (SDC) | payer MEDICARE, MEDICAID ==
[~2022-12-17] VITALS: Ht 177.8 cm; Wt 81.2 kg
[~2022-12-17 08:20] MED LIST changes: +FLUT15.845 NS; +LORA10TA76 PO
[2022-12-17] MEDS ORDERED: LACTATED RINGERS 1,000 ML IV STA (08:31)
[2022-12-17 08:42] VITALS: BP 136/99
--- NOTE | 2022-12-17 08:52 | Progress Note-Pre Operative ---
Pre-Operative Progress Note Date of Available H&P: November 27, 2022 Date H&P Reviewed: December 17, 2022 Time H&P Reviewed: 08:46 History & Physical: H&P Reviewed, Patient Examed, No changes noted Pre-Operative Diagnosis: Hx of large polyp PAULY KERR DO December 17, 2022 08:52
[2022-12-17] MEDS ORDERED: PROPOFOL INJECTION 50 ML IV ONE (09:57)
[2022-12-17] MEDS ORDERED: MIDAZOLAM 2 MG/2 ML (VERSED) VIAL ONE (09:57)
--- NOTE | 2022-12-17 10:18 | Progress Note-Post Operative ---
Post-Operative Progess Note Surgeon (s)/Director Data Management (s) Surgeon PAULY KERR DO Director Data Management: none Pre-Operative Diagnosis Hx of large polyp Post-Operative Diagnosis Polyp Int hemorrhoids Procedure & Operative Findings Date of Procedure 12/17/22 Procedure Performed/Findings Colonoscopy with hot biopsy PROCEDURE NOTE: After informed consent was obtained, the patient was brought to the endoscopy suite, placed in bed in left lateral decubitus position. He was administered IV sedation by the [employer] ENR[employer]MENT MANAGER who then monitored his vitals the entire time, heart rate, blood pressure and pulse ox and the scope was inserted, pushed all the way to about 130 cm and pushed into the cecum, took a picture of appendiceal orifice and noted the ileocecal valve. Then slowly withdrew the scope insufflating to look circumferentially at the warren starting in the cecum and up the ascending colon where I found a small flat polyp that I removed with hot biopys. Continued up to the hepatic flexure, then down the transverse colon to the splenic flexure, into the descending colon, down into the sigmoid and then into the rectal vault and retroflexed the scope. Took a picture of the internal hemorrhoids. The patient tolerated the procedure. He was recovered in endoscopy suite. Recommended for repeat colonoscopy in 5 years. Anesthesia Type IV sedation by [employer] ENR[employer]MENT MANAGER Estimated Blood Loss Estimated blood loss (mL): scant Specimens/Packing Specimens Removed asc colon polyp PAULY KERR DO December 17, 2022 10:18
--- NOTE | 2022-12-17 10:19 | Endoscopy Discharge Instruct ---
Endo Procedure/Findings Findings 1.: Polyp 2.: Internal Hemorrhoids Discharge Instructions - Activity: You might feel a little sleepy until tomorrow. This is due to the medicine you received to relax you. Until tomorrow, you should: NOT drive a car, operate machinery or power tools. NOT drink any alcoholic beverages. NOT make any important decisions or sign importortant papers. Do not return to work until tomorrow, unless otherwise instructed. Resume previous activities tomorrow. Diet: Start by taking liquids. If you tolerate liquids, advance to solid food. 1.: Colonscopy in 5 years Notify Physician - If you experience excessive bleeding, unusual abdominal pain, fever, or chest pain, contact your doctor immediately. Follow-Up: Other Follow up in my office in one week PAULY KERR DO December 17, 2022 10:19
[2022-12-17 10:20] VITALS: BP 90/53
[2022-12-17 10:30] VITALS: BP 89/56
[2022-12-17 11:00] VITALS: BP 89/56
--- NOTE | 2022-12-17 12:36 | Anesthesia-General Post-Op ---
MAC Patient Condition Mental Status/LOC: Same as Preop Cardiovascular: Satisfactory Nausea/Vomiting: Absent Respiratory: Satisfactory Pain: Controlled Complications: Absent Post Op Complications Complications None Follow Up Care/Instructions Patient Instructions None needed. Anesthesiology Discharge Order Discharge Order Patient is doing well, no complaints, stable vital signs, no apparent adverse anesthesia problems. No complications reported per nursing. JUAN FRANCISCO HOANG CRNA December 17, 2022 12:36
== END 2022-12-17 11:06 | disposition home or self-care (01) ==
LOC: ENDO 08:20
PROVIDERS: ATTEND Surgery
DX: Z12.11 Encounter for screening for malignant neoplasm of colon (principal); D12.2 Benign neoplasm of ascending colon; K64.8 Other hemorrhoids; I48.21 Permanent atrial fibrillation; K29.50 Unspecified chronic gastritis without bleeding; F17.290 Nicotine dependence, other tobacco product, uncomplicated; Z79.01 Long term (current) use of anticoagulants; Z86.16 Personal history of COVID-19; Z28.310 Unvaccinated for COVID-19

== ENCOUNTER → 2023-04-30 | Outpatient (CLI) | payer MEDICARE, MEDICAID | LOC: CANPRECLI → CARD 10:05 | PROVIDERS: ATTEND Internal Medicine Cardiovascular Disease | DX: I51.7 Cardiomegaly (principal); I34.0 Nonrheumatic mitral (valve) insufficiency | CPT/HCPCS: 93306 ==